=== PATIENT | male | born 1965 | race African-American/Black ===

== ENCOUNTER 2016-04-05 07:32 | Emergency (ER) | payer OTHER ==
[~2016-04-05] VITALS: Ht 182.9 cm; Wt 90.7 kg
[~2016-04-05 07:32] MED LIST: ACET325T9 PO; INSU100C4 SQ; INSU300I SQ; LINA290C PO; LISI-334 PO; MELO-150 PO; OMEP20CA9 PO; ONDA4TAB7 PO; OXYC-323 PO; PANT40TA3 PO; TADA5TAB PO
--- NOTE | 2016-04-05 07:56 | PHYS DOC ---
Past Medical History Past Medical History: Diabetes-Type I, High Cholesterol, Hypertension, Unknown , Other Additional Past Medical Histor: NEUROPATHY IN BILATERAL FEET,ERECTILE DYSFUNCTION Past Surgical History: Cholecystectomy Alcohol Use: None Drug Use: None Adult General Chief Complaint Chief Complaint: NAUSEA/VOMITING/DIARRHA HPI HPI Patient is a 50 year old male who presents with complaint of nausea, diarrhea, and abdominal pain. Patient states that his symptoms have been present for the past 5 days. On further questioning, patient states that he has had intermittent symptoms over the past 6 months. Patient denies any fevers, hematemesis, or bloody stools. The patient had his gallbladder removed several months ago with the hopes that this would help with his symptoms, however patient states that he has continued to have problems since having his gallbladder removed. Patient states that he was supposed to follow-up with Dr. Hutton one month ago but states that they did not make an appointment for him so he has not gone. Patient states that the pain is in the upper portion of his abdomen. Patient denies radiation of pain. Patient states that his symptoms get worse any time he tries to eat or drink anything. Review of Systems Review of Systems Constitutional: Denies fever or chills [] Eyes: Denies change in visual acuity, redness, or eye pain [] HENT: Denies nasal congestion or sore throat [] Respiratory: Denies cough or shortness of breath [] Cardiovascular: Denies chest pain or edema [] GI: Abdominal pain, nausea, vomiting, diarrhea [] : Denies dysuria or hematuria [] Musculoskeletal: Denies back pain or joint pain [] Integument: Denies rash or skin lesions [] Neurologic: Denies headache, focal weakness or sensory changes [] Endocrine: Denies polyuria or polydipsia [] Current Medications Current Medications Current Medications Medications (Trade) Dose Ordered Sig/Karli Start Time Stop Time Status Last Admin Dose Admin Sodium Chloride (Iv Sodium Chloride 0.9% 1000ml Bag) 1,000 ml @ 1,000 mls/hr Q1H 04/05/16 08:15 04/05/16 09:14 DC 04/05/16 08:33 1,000 MLS/HR Allergies Allergies Allergies Coded Allergies Type Severity Reaction Last Updated Verified No Known Drug Allergies 06/11/15 No Physical Exam Physical Exam Constitutional: Alert, afebrile, no acute distress. [] HENT: Normocephalic, atraumatic, bilateral external ears normal, oropharynx moist, no oral exudates, nose normal. [] Eyes: PERRLA, EOMI, conjunctiva normal, no discharge. [] Neck: Normal range of motion, no tenderness, supple, no stridor. [] Cardiovascular: Tachycardia, regular rhythm, no murmur [] Lungs & Thorax: Bilateral breath sounds clear to auscultation [] Abdomen: Bowel sounds normal, soft, minimal epigastric tenderness to palpation, no guarding or rebound tenderness, no masses, no pulsatile masses. [] Skin: Warm, dry, no erythema, no rash. [] Back: No tenderness, no CVA tenderness. [] Extremities: No tenderness, no cyanosis, no clubbing, ROM intact, no edema. [] Neurologic: Alert and oriented X 3, normal motor function, normal sensory function, no focal deficits noted. [] Current Patient Data Vital Signs Vital Signs Date Time Temp Pulse Resp B/P Pulse Ox O2 Delivery O2 Flow Rate FiO2 04/05/16 09:59 106 18 148/95 100 Room Air 04/05/16 07:36 98.4 98.4 Lab Values Laboratory Tests Test 04/05/16 07:50 04/05/16 09:52 White Blood Count 9.8x10^3/uL (4.0-11.0) Red Blood Count 4.87x10^6/uL (4.30-5.70) Hemoglobin 13.7g/dL (13.0-17.5) Hematocrit 41.5% (39.0-53.0) Mean Corpuscular Volume 85fL (79-100) Mean Corpuscular Hemoglobin 28pg (25-35) Mean Corpuscular Hemoglobin Concent 33g/dL (31-37) Red Cell Distribution Width 14.6% (11.5-14.5) H Platelet Count 282x10^3/uL (140-400) Neutrophils (%) (Auto) 63% (31-73) Lymphocytes (%) (Auto) 29% (24-48) Monocytes (%) (Auto) 7% (0-9) Eosinophils (%) (Auto) 1% (0-3) Basophils (%) (Auto) 1% (0-3) Neutrophils # (Auto) 6.1x10^3uL (1.8-7.7) Lymphocytes # (Auto) 2.9x10^3/uL (1.0-4.8) Monocytes # (Auto) 0.7x10^3/uL (0.0-1.1) Eosinophils # (Auto) 0.1x10^3/uL (0.0-0.7) Basophils # (Auto) 0.1x10^3/uL (0.0-0.2) Sodium Level 138mmol/L (136-145) Potassium Level 3.9mmol/L (3.5-5.1) Chloride Level 101mmol/L (98-107) Carbon Dioxide Level 27mmol/L (21-32) Anion Gap 10 (6-14) Blood Urea Nitrogen 16mg/dL (8-26) Creatinine 1.2mg/dL (0.7-1.3) Estimated GFR (Cockcroft-Gault) 76.9 BUN/Creatinine Ratio 13 (6-20) Glucose Level 258mg/dL (70-99) H Calcium Level 9.0mg/dL (8.5-10.1) Total Bilirubin 0.4mg/dL (0.2-1.0) Aspartate Amino Transferase (AST) 14U/L (15-37) L Alanine Aminotransferase (ALT) 17U/L (16-63) Alkaline Phosphatase 90U/L (46-116) Total Protein 7.6g/dL (6.4-8.2) Albumin 3.4g/dL (3.4-5.0) Albumin/Globulin Ratio 0.8 (1.0-1.7) L Lipase 84U/L (73-393) Urine Collection Type Void Urine Color Yellow Urine Clarity Clear Urine pH 5.5 Urine Specific [place] >=1.030 Urine Protein Negativemg/dL (NEG-TRACE) Urine Glucose (UA) >=1000mg/dL (NEG) Urine Ketones (Stick) Negativemg/dL (NEG) Urine Blood Negative (NEG) Urine Nitrite Negative (NEG) Urine Bilirubin Negative (NEG) Urine Urobilinogen Dipstick 0.2mg/dL (0.2 mg/dL) Urine Leukocyte Esterase Negative (NEG) Urine RBC 0/HPF (0-2) Urine WBC 1-4/HPF (0-4) Urine Squamous Epithelial Cells Occ/LPF Urine Bacteria 0/HPF (0-FEW) Urine Hyaline Casts Moderate/HPF Urine Mucus Slight/LPF Urine Opiates Screen Neg (NEG) Urine Methadone Screen Neg (NEG) Urine Barbiturates Neg (NEG) Urine Phencyclidine Screen Neg (NEG) Urine Amphetamine/Methamphetamine Neg (NEG) Urine Benzodiazepines Screen Neg (NEG) Urine Cocaine Screen Neg (NEG) Urine Cannabinoids Screen Neg (NEG) Urine Ethyl Alcohol Neg (NEG) Laboratory Tests 04/05/16 07:50 Laboratory Tests 04/05/16 07:50 EKG EKG Interpreted by me: Heart rate 108, sinus rhythm, normal intervals, normal axis, no acute ST/T-wave abnormalities present [] Radiology/Procedures Radiology/Procedures [facility] [address] [place] [address] IMAGING REPORT Signed PATIENT: AMPARO CALLOWAY ACCOUNT: [id number] : 1965 LOCATION: ER AGE: 50 SEX: M EXAM STATUS: REG ER ORD. PHYSICIAN: MAXINE WILSON MD REASON: abdominal pain, vomitting, X 1 WEEK, NO INJURY, NO SURGERY PROCEDURE: ACUTE ABDOMEN SERIES Acute abdomen series with chest, 3 views, 04/05/2016: History: Abdominal pain and vomiting The abdominal gas pattern is unremarkable without evidence of obstruction. No free air seen in the abdomen. There is no evidence of organomegaly. Surgical clips are present in the right upper quadrant. Tiny pelvic calcifications are probably phleboliths. The heart size is normal. The lungs are clear. There is no evidence of pleural fluid. IMPRESSION: No acute abdominal abnormality is detected. DICTATED and SIGNED BY: PREET PEREZ MD DATE: 04/05/16 0834 CC: MAXINE WILSON MD; DESIRAE ONOFRE PA-C ~ [] Course & Med Decision Making Course & Med Decision Making Pertinent Labs and Imaging studies reviewed. (See chart for details) The patient was given IV fluids. Patient was given a meal tray in the emergency department. Patient's lab work is unremarkable and x-rays do not show an acute process. The patient is recommended follow-up with his primary doctor and to follow-up with Dr. Hutton of gastroenterology as recommended a previous visit. Advised to call their office today to schedule an appointment in the next 1-2 weeks. Advised return emergency department for any worsening symptoms. Patient voiced understanding and in agreement with treatment plan. Dragon Disclaimer Dragon Disclaimer This electronic medical record was generated, in whole or in part, using a voice recognition dictation system. Departure Departure Impression: Primary Impression: Abdominal pain Additional Impressions: Nausea and vomiting Diarrhea Disposition: HOME, SELF-CARE Condition: IMPROVED Referrals: DESIRAE ONOFRE PA-C (PCP) ANIBAL HUTTON MD Patient Instructions: Abdominal Pain (Nonspecific), Diarrhea, Nausea and Vomiting Additional Instructions: Follow-up with Dr. Hutton in the next 1-2 weeks. Call his office today to schedule an appointment. Continue on Pepcid twice daily and use Zofran as needed for nausea. Return to the emergency department for any worsening symptoms. Scripts Famotidine (Pepcid)20 Mg [id number] Mg PO BID #30 TAB Prov:MAXINE WILSON MD 04/05/16 Metoclopramide Hcl (Reglan)10 Mg Tablet1 Tab PO TID PRN NAUSEA/VOMITING #30 TAB Prov:MAXINE WILSON MD 04/05/16 Problem Qualifiers Primary Impression: Abdominal pain Abdominal location: epigastric Qualified Code: R10.13 - Epigastric pain Additional Impressions: Nausea and vomiting Vomiting type: unspecified Vomiting Intractability: non-intractable Qualified Code: R11.2 - Nausea with vomiting, unspecified Diarrhea Diarrhea type: unspecified type Qualified Code: R19.7 - Diarrhea, unspecified MAXINE WILSON MD Apr 05, 2016 07:56
[2016-04-05] MEDS ORDERED: IV NORMAL SALINE 1000ML BAG 1,000 ML IV SCH (08:15)
[2016-04-05 08:16] LABS: BASO # 0.1 x10^3/uL (0.0-0.2); BASO % 1 % (0-3); EOS % 1 % (0-3); HEMATOCRIT 41.5 % (39.0-53.0); HEMOGLOBIN 13.7 g/dL (13.0-17.5); LYMPH # 2.9 x10^3/uL (1.0-4.8); LYMPH % 29 % (24-48); MEAN CORPUSCULAR HEMOGLOBIN 28 pg (25-35); MEAN CORPUSCULAR HGB CONC 33 g/dL (31-37); MEAN CORPUSCULAR VOLUME 85 fL (79-100); MONO % 7 % (0-9); NEUT % 63 % (31-73); PLATELET COUNT 282 x10^3/uL (140-400); RED BLOOD COUNT 4.87 x10^6/uL (4.30-5.70); RED CELL DISTRIBUTION WIDTH 14.6 % (11.5-14.5); WHITE BLOOD COUNT 9.8 x10^3/uL (4.0-11.0)
[2016-04-05 08:21] LABS: CREATININE 1.2 mg/dL (0.7-1.3); GFR 76.9; POTASSIUM 3.9 mmol/L (3.5-5.1)
[2016-04-05 08:27] LABS: ALBUMIN 3.4 g/dL (3.4-5.0); ALBUMIN/GLOBULIN RATIO 0.8 (1.0-1.7); TOTAL BILIRUBIN 0.4 mg/dL (0.2-1.0); TOTAL PROTEIN 7.6 g/dL (6.4-8.2)
--- NOTE | 2016-04-05 08:38 | RAD ---
Acute abdomen series with chest, 3 views, 04/05/2016: History: Abdominal pain and vomiting The abdominal gas pattern is unremarkable without evidence of obstruction. No free air seen in the abdomen. There is no evidence of organomegaly. Surgical clips are present in the right upper quadrant. Tiny pelvic calcifications are probably phleboliths. The heart size is normal. The lungs are clear. There is no evidence of pleural fluid. IMPRESSION: No acute abdominal abnormality is detected.
[2016-04-05 10:07] LABS: BARBITURATES NEG (NEG); BENZODIAZEPINES NEG (NEG); CANNABINOIDS NEG (NEG); COCAINE NEG (NEG); METHADONE NEG (NEG); OPIATES NEG (NEG); PHENCYCLIDINE NEG (NEG)
[2016-04-05 10:10] LABS: BILIRUBIN,URINE NEGATIVE (NEG); ETHANOL, URINE NEG (NEG); GLUCOSE,URINE >=1000 mg/dL (NEG); NITRITE,URINE NEGATIVE (NEG); PH,URINE 5.5; PROTEIN,URINE NEGATIVE (NEG-TRACE); UROBILINOGEN,URINE 0.2 mg/dL (0.2 mg/dL)
--- NOTE | 2016-04-05 10:10 | EKG ---
[facility] [address] [place] [address] Test Date: 2016-04-05 Test Time: 08:20:43 Pat Name: AMPARO CALLOWAY Department: Room: Gender: M [employer]: : 1965 Requested By: MAXINE WILSON Order Number: [id number] Reading MD: Measurements Intervals [place] Rate: 108 P: 43 HI: 156 QRS: -12 QRSD: 84 T: 26 QT: 338 QTc: 457 Interpretive Statements SINUS TACHYCARDIA LEFTWARD AXIS QRS(T) CONTOUR ABNORMALITY CONSIDER ANTEROLATERAL MYOCARDIAL DAMAGE CONSIDER INFERIOR INFARCT POSSIBLY ABNORMAL ECG RI6.01 Compared to ECG 01/25/2016 06:45:15 Left-axis deviation now present Myocardial infarct finding now present
[2016-04-05 10:55] LABS: BACTERIA,URINE 0 /HPF (0-FEW); RBC,URINE 0 /HPF (0-2); SQUAMOUS EPITHELIAL CELL,UR OCC /LPF
[2016-04-05] MEDS ORDERED: METO10TA81 PO (11:50)
[2016-04-05] MEDS ORDERED: FAMO-63 PO (11:50)
[2016-04-05 11:51] VITALS: BP 144/73
== END 2016-04-05 12:36 | disposition home or self-care (01) ==
LOC: ER 07:32
DX: R10.13 Epigastric pain (principal); R11.2 Nausea with vomiting, unspecified; R19.7 Diarrhea, unspecified; E10.40 Type 1 diabetes mellitus with diabetic neuropathy, unspecified; I10 Essential (primary) hypertension; E78.00 Pure hypercholesterolemia, unspecified; Z90.49 Acquired absence of other specified parts of digestive tract
CPT/HCPCS: 36415; 74022; 80053; 81001; 83690; 85027; 93005; 96360; 96361; 99285; G0481; J7030

== ENCOUNTER 2016-04-08 17:14 | Emergency (ER) | payer OTHER ==
[~2016-04-08] VITALS: Ht 182.9 cm; Wt 87.1 kg
[~2016-04-08 17:14] MED LIST changes: +FAMO-63 PO; +METO10TA81 PO
[2016-04-08 18:26] VITALS: BP 147/105
--- NOTE | 2016-04-08 18:57 | PHYS DOC ---
Past Medical History Past Medical History: Diabetes-Type I, High Cholesterol, Hypertension, Unknown , Other Additional Past Medical Histor: NEUROPATHY IN BILATERAL FEET,ERECTILE DYSFUNCTION Past Surgical History: Cholecystectomy Alcohol Use: None Drug Use: None Adult General Chief Complaint Chief Complaint: FOOT INJURY PAIN [facility] HPI Patient is a 50 year old male presents emergency Department stating he's had 2- 3 month history of pain and swelling to his left knee and lower leg. He states that he has had swelling in the foot area for the last 2 months. Also has had back pain for the last 2-3 months. Patient states that he was seen by his primary care physician and was told that this is related to the way he is walking. Patient states that he has been having injections in his knee. Patient states that he has been having sharp pains in his ankle area and in the foot. He denies any numbness or tingling in his left side although he does have neuropathy in his right foot. Patient states he has increased pain with ambulation. Patient denies any falls traumas in her any injuries. Patient had been taking tramadol although patient states that this has really not been helping with much of the pain and discomfort. She'll states she's been taken Aleve for his back pain which has actually caused increased pain and discomfort in his lower back area. Review of Systems Review of Systems Constitutional: Denies fever or chills [] Eyes: Denies change in visual acuity, redness, or eye pain [] HENT: Denies nasal congestion or sore throat [] Respiratory: Denies cough or shortness of breath [] Cardiovascular: No additional information not addressed in HPI [] GI: Denies abdominal pain, nausea, vomiting, bloody stools or diarrhea [] : Denies dysuria or hematuria [] Musculoskeletal: C/o back pain and left lower leg pain Integument: Denies rash or skin lesions [] Neurologic: Denies headache, focal weakness or sensory changes [] Current Medications Current Medications Current Medications Medications (Trade) Dose Ordered Sig/Karli Start Time Stop Time Status Last Admin Dose Admin Tramadol HCl (Ultram) 50 mg 1X ONCE 04/08/16 19:00 04/08/16 19:01 DC 04/08/16 19:00 50 MG Allergies Allergies Allergies Coded Allergies Type Severity Reaction Last Updated Verified No Known Drug Allergies 06/11/15 No Physical Exam Physical Exam Constitutional: Well developed, well nourished, no acute distress, non-toxic appearance. [] HENT: Normocephalic, atraumatic, bilateral external ears normal, oropharynx moist, no oral exudates, nose normal. [] Eyes: PERRLA, EOMI, conjunctiva normal, no discharge. [] Neck: Normal range of motion, no tenderness, supple, no stridor. [] Cardiovascular:Heart rate regular rhythm, no murmur [] Lungs & Thorax: Bilateral breath sounds clear to auscultation [] Skin: Warm, dry, no erythema, no rash. [] Back: No tenderness noted in the lower back, no lumbar spine tenderness, no step -offs, deformities, or crepitus. Extremities: Left knee and foot with no tenderness, no cyanosis, no clubbing, ROM intact, no edema. Peripheral pulses 2+ cap refill brisk less than 2 seconds good sensation noted. Negative Homans sign negative valgus, negative [place]. Negative Eloise's. Neurologic: Alert and oriented X 3, normal motor function, normal sensory function, no focal deficits noted. [] Psychologic: Affect normal, judgement normal, mood normal. [] Current Patient Data Vital Signs Vital Signs Date Time Temp Pulse Resp B/P Pulse Ox O2 Delivery O2 Flow Rate FiO2 04/08/16 18:26 98.2 113 18 99 Room Air 98.2 EKG EKG [] Radiology/Procedures Radiology/Procedures [] Course & Med Decision Making Course & Med Decision Making Pertinent Labs and Imaging studies reviewed. (See chart for details) Spoke with patient and family regards to this going on for the last 2-3 months. Asked with her primary care physician had instructed them. They state that it has to do with the way he is walking. Explained to patient that from the emergency department standpoint we may not find anything further home with the leg as he has had no trauma or injury to require x-rays. Family member at bedside states that concerned with the swelling although swelling is been going on for the last 2-3 months. Family member states that they have been elevating it at night in the swelling has not continued to go down. Patient does have an elevation of his blood pressure here in the emergency department denies any headaches chest pain or shortness of air. 1908 patient has chosen not to have the ultrasound completed on his left lower leg. Patient will be discharged home with recommendations to follow-up with his primary care physician within the next 3-5 days. Signs and symptoms to return back to emergency department been provided. Patient agrees with discharge instructions treatment regimens and follow-up recommendations. [] Dragon Disclaimer Dragon Disclaimer This electronic medical record was generated, in whole or in part, using a voice recognition dictation system. Departure Departure Impression: Primary Impression: Left leg pain Additional Impression: Left leg swelling Disposition: HOME, SELF-CARE Condition: STABLE Referrals: DESIRAE ONOFRE PA-C (PCP) Patient Instructions: Musculoskeletal Pain Additional Instructions: You have been offered an ultrasound for your left lower leg in which you have refused. Activity as tolerated. Medication as prescribed. Tramadol will cause drowsiness do not take any be alert and oriented. Flexeril is a muscle relaxer this medication will also cause drowsiness do not take any be alert and oriented. Continue with Aleve or ibuprofen for pain and discomfort as well. Elevation as much as possible. Follow-up to primary care physician next 3-5 days. Return back to emergency department sign symptoms of become worse. Scripts Cyclobenzaprine Hcl 10 Mg [id number] Mg PO TID #20 TAB Prov:CONNIE NAIDU NP 04/08/16 Tramadol Hcl (Ultram)50 Mg Tablet1 Tab PO Q6HRS #10 TAB Prov:CONNIE NAIDU [employer] 04/08/16 Problem Qualifiers CONNIE NAIDU NP Apr 08, 2016 18:57
[2016-04-08] MEDS ORDERED: TRAMADOL 50 MG TABLET. PO ONE (19:00)
[2016-04-08] MEDS ORDERED: TRAM-29 PO (19:10)
[2016-04-08] MEDS ORDERED: CYCL10TA2 PO (19:11)
== END 2016-04-08 19:15 | disposition home or self-care (01) ==
LOC: ER 17:14
DX: M79.605 Pain in left leg (principal); M79.89 Other specified soft tissue disorders; E78.00 Pure hypercholesterolemia, unspecified; I10 Essential (primary) hypertension; E11.40 Type 2 diabetes mellitus with diabetic neuropathy, unspecified
CPT/HCPCS: 99283

== ENCOUNTER 2016-05-30 13:31 | Emergency (ER) | payer OTHER ==
[~2016-05-30] VITALS: Ht 180.3 cm; Wt 88.5 kg
[~2016-05-30 13:31] MED LIST changes: +CYCL10TA2 PO; +TRAM-29 PO
[2016-05-30 13:34] VITALS: BP 156/106
[2016-05-30 14:34] LABS: BILIRUBIN,URINE NEGATIVE (NEG); GLUCOSE,URINE >=1000 mg/dL (NEG); NITRITE,URINE NEGATIVE (NEG); PROTEIN,URINE NEGATIVE (NEG-TRACE); UROBILINOGEN,URINE 0.2 mg/dL (0.2 mg/dL)
[2016-05-30 14:41] LABS: BACTERIA,URINE 0 /HPF (0-FEW); RBC,URINE 0 /HPF (0-2); SQUAMOUS EPITHELIAL CELL,UR FEW /LPF; WBC,URINE OCC /HPF (0-4)
[2016-05-30] MEDS ORDERED: HYDR-971 PO (14:52)
[2016-05-30] MEDS ORDERED: METH-37 PO (14:52)
--- NOTE | 2016-05-30 14:52 | PHYS DOC ---
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 He denies any injury to his back. He has not been doing any bending or lifting activities.He denies any incontinence or saddle anesthesia. He does not have any weakness, numbness, abdominal pain, nausea, vomiting, or urinary symptoms. He is tried applying heat and ice and taking ibuprofen at home without pain relief. He denies any history of chronic back problems. His PCP is Dr. Worthington. Review of Systems Review of Systems Constitutional: Denies fever or chills. [] Eyes: Denies change in visual acuity, redness, or eye pain. [] HENT: Denies ear pain, nasal congestion or sore throat. [] Respiratory: Denies cough or shortness of breath. [] Cardiovascular: Denies chest pain, palpitations or edema. [] GI: Denies abdominal pain, nausea, vomiting, bloody stools or diarrhea. [] : Denies dysuria, hematuria or urinary frequency. [] Musculoskeletal: Denies joint pain. Reports low-back pain with radiation down the right leg. Integument: Denies rash or skin lesions. [] Neurologic: Denies headache, focal weakness or sensory changes. Denies incontinence or saddle anesthesia. Endocrine: Denies polyuria or polydipsia. [] Psych: Denies anxiety or depression. [] All systems reviewed and negative unless otherwise stated in the HPI. Allergies Allergies Allergies Coded Allergies Type Severity Reaction Last Updated Verified No Known Drug Allergies 06/11/15 No Physical Exam Physical Exam Constitutional: Well developed, well nourished, no acute distress, non-toxic appearance. [] HENT: Normocephalic, atraumatic, oropharynx moist. [] Eyes: PERRLA, EOMI, conjunctiva normal, no discharge. [] Neck: Normal range of motion, no tenderness, supple, no stridor. [] Cardiovascular: Heart rate regular rhythm, no murmur. [] Lungs & Thorax: Bilateral breath sounds clear to auscultation without wheezes, rales, or rhonchi. [] Abdomen: Bowel sounds normal, soft, no tenderness, no masses, no pulsatile masses. [] Skin: Warm, dry, no erythema, no rash. [] Back: No midline tenderness, no CVA tenderness. There is right lumbar paraspinal muscle tenderness with spasm. Extremities: No tenderness, ROM intact, no edema. Distal pulses equal bilaterally. Light touch sensation intact and equal bilaterally proximally and distally in the lower extremities. Neurologic: Alert and oriented X 3, normal motor function, normal sensory function, no focal deficits noted. Patient walks with normal steady gait without assistance. Psychologic: Affect normal, judgement normal, mood normal. [] Current Patient Data Vital Signs Vital Signs Date Time Temp Pulse Resp B/P Pulse Ox O2 Delivery O2 Flow Rate FiO2 05/30/16 13:34 98.0 123 20 99 Room Air 98.0 Lab Values Laboratory Tests Test 05/30/16 14:10 Urine Collection Type Unknown Urine Color Yellow Urine Clarity Clear Urine pH 6.0 Urine Specific [place] >=1.030 Urine Protein Negativemg/dL (NEG-TRACE) Urine Glucose (UA) >=1000mg/dL (NEG) Urine Ketones (Stick) Negativemg/dL (NEG) Urine Blood Negative (NEG) Urine Nitrite Negative (NEG) Urine Bilirubin Negative (NEG) Urine Urobilinogen Dipstick 0.2mg/dL (0.2 mg/dL) Urine Leukocyte Esterase Negative (NEG) Urine RBC 0/HPF (0-2) Urine WBC Occ/HPF (0-4) Urine Squamous Epithelial Cells Few/LPF Urine Bacteria 0/HPF (0-FEW) Urine Mucus Mod/LPF EKG EKG [] Radiology/Procedures Radiology/Procedures [] Course & Med Decision Making Course & Med Decision Making Pertinent Labs and Imaging studies reviewed. (See chart for details) [] Dragon Disclaimer Dragon Disclaimer This electronic medical record was generated, in whole or in part, using a voice recognition dictation system. Departure Departure Impression: Primary Impression: Low back pain Disposition: 01 HOME, SELF-CARE Condition: STABLE Referrals: MESHA WORTHINGTON MD (PCP) Patient Instructions: Back Pain, Adult, [id number] Additional Instructions: Your urine does not show any sign of infection or blood. Please take the prescribed medications as directed. Do not drive or operate heavy machinery while taking these medications. In order to help your back pain, apply heat, practice gentle stretching and light massage, and avoid bending or lifting activities that will further strain your back. Please follow-up with your primary care doctor if your pain continues. Return to the emergency department if you have any new or concerning symptoms. Scripts Hydrocodone/Apap 5-325 ([place] 5-325 Tablet)1 Each Tablet1 Tab PO PRN Q6HRS PRN PAIN #20 TAB Prov:LINDA TSE 05/30/16 Methocarbamol (Robaxin)500 Mg [id number] Mg PO QID #20 TAB Prov:LINDA TSE 05/30/16 Problem Qualifiers Primary Impression: Low back pain Chronicity: acute Back pain laterality: right Sciatica presence: with sciatica Sciatica laterality: sciatica of right side Qualified Code: M54.41 - Lumbago with sciatica, right side LINDA TSE May 30, 2016 14:52
== END 2016-05-30 14:59 | disposition home or self-care (01) ==
LOC: ER 13:31
DX: M54.41 Lumbago with sciatica, right side (principal); E78.00 Pure hypercholesterolemia, unspecified; I10 Essential (primary) hypertension; E11.40 Type 2 diabetes mellitus with diabetic neuropathy, unspecified; Z90.49 Acquired absence of other specified parts of digestive tract
CPT/HCPCS: 81001; 99283

== ENCOUNTER 2016-07-01 08:09 | Emergency (ER) | payer OTHER ==
[~2016-07-01] VITALS: Ht 180.3 cm; Wt 90.7 kg
[~2016-07-01 08:09] MED LIST changes: +HYDR-971 PO; +METH-37 PO
[2016-07-01 08:15] VITALS: BP 188/111
[2016-07-01] MEDS ORDERED: METH-37 PO (08:35)
[2016-07-01] MEDS ORDERED: HYDR-971 PO (08:35)
--- NOTE | 2016-07-01 08:35 | PHYS DOC ---
Past Medical History Past Medical History: Diabetes-Type I, Diabetes-Type II, High Cholesterol, Hypertension, Unknown, Other Additional Past Medical Histor: NEUROPATHY IN BILATERAL FEET,ERECTILE DYSFUNCTION Past Surgical History: Cholecystectomy Alcohol Use: None Drug Use: None Adult General Chief Complaint Chief Complaint: BACK PAIN - NO INJURY HPI HPI Patient is a 51 year old male with history of diabetes type 2, hypertension, high cholesterol, who presents today with mild bilateral low back pain radiating to bilateral lower extremities. Patient states this pain is chronic in nature but has gotten worse in the last couple days due to heavy lifting at work. He states he follows up with Dr. Worthington and has an appointment on July 07, 2016. He states he has tried eivj-tvc-kanjxoe Aleve, warm packs, with no relief. Patient denies any trauma. Denies any loss of bowel bladder function. Denies any numbness or tingling to bilateral lower extremities. Review of Systems Review of Systems Constitutional: Denies fever or chills [] GI: Denies abdominal pain, nausea, vomiting, bloody stools or diarrhea [] : Denies dysuria or hematuria [] Musculoskeletal: back pain Integument: Denies rash or skin lesions [] Neurologic: Denies headache, focal weakness or sensory changes [] Endocrine: Denies polyuria or polydipsia [] Allergies Allergies Allergies Coded Allergies Type Severity Reaction Last Updated Verified No Known Drug Allergies 06/11/15 No Physical Exam Physical Exam Constitutional: Well developed, well nourished, no acute distress, non-toxic appearance. [] Neck: Normal range of motion, no tenderness, supple, no stridor. [] Abdomen: Bowel sounds normal, soft, no tenderness, no masses, no pulsatile masses. [] Skin: Warm, dry, no erythema, no rash. [] Back: Diffuse paraspinal muscle tenderness to bilateral lower lumbar region, no midline lumbar tenderness, no CVA tenderness. [] Extremities: No tenderness, no cyanosis, no clubbing, ROM intact, no edema. [] Neurologic: Alert and oriented X 3, normal motor function, normal sensory function, no focal deficits noted. [] Psychologic: Affect normal, judgement normal, mood normal. [] Current Patient Data Vital Signs Vital Signs Date Time Temp Pulse Resp B/P (MAP) Pulse Ox O2 Delivery O2 Flow Rate FiO2 07/01/16 08:15 98.1 84 18 98 Room Air 98.1 EKG EKG [] Radiology/Procedures Radiology/Procedures [] Course & Med Decision Making Course & Med Decision Making Pertinent Labs and Imaging studies reviewed. (See chart for details) Patient is in the ED with exacerbation of chronic low back pain. No injury. He follows up with Dr. Worthington and has an appointment on July 07, 2016. He has tried oegm-vtw-ywsbwlv Aleve and warm packs with no relief. D/C with [place], Robaxin which he states he got last time and it helped and he will continue with Aleve as needed. Dragon Disclaimer Dragon Disclaimer This electronic medical record was generated, in whole or in part, using a voice recognition dictation system. Departure Departure Impression: Primary Impression: Back pain Disposition: HOME, SELF-CARE Condition: STABLE Referrals: MESHA WORTHINGTON MD (PCP) Patient Instructions: Back Pain, Adult Additional Instructions: You were seen for exacerbation of chronic back pain. We highly recommend you follow-up with Dr. Worthington as scheduled on Jul 07 2016. We sent you home with medicines to help with the pain. Take as prescribed. please come back to the emergency room if symptoms worsen especially if you develop any loss of bowel/ bladder function. Scripts Hydrocodone/Apap 5-325 (NORCO 5-325 TABLET) 1 Each Tablet 1 TAB PO Q6-8HRS Y for PAIN, #12 TAB Prov: ELAINE CLEMENTS APRN 07/01/16 Methocarbamol (ROBAXIN) 500 Mg Tablet 1 TAB PO TID, #30 TAB Prov: ELAINE CLEMENTS APRN 07/01/16 Problem Qualifiers Primary Impression: Back pain Back pain location: low back pain Chronicity: chronic Back pain laterality : bilateral Sciatica presence: with sciatica Sciatica laterality: bilateral sciatica Qualified Codes: M54.42 - Lumbago with sciatica, left side ; M54.41 - Lumbago with sciatica, right side; G89.29 - Other chronic pain ELAINE CLEMENTS APRN July 01, 2016 08:35
== END 2016-07-01 08:43 | disposition home or self-care (01) ==
LOC: ER 08:09
DX: G89.29 Other chronic pain (principal); M54.41 Lumbago with sciatica, right side; M54.42 Lumbago with sciatica, left side; I10 Essential (primary) hypertension; E78.00 Pure hypercholesterolemia, unspecified; E11.40 Type 2 diabetes mellitus with diabetic neuropathy, unspecified
CPT/HCPCS: 99283

== ENCOUNTER 2016-10-23 10:40 | Emergency (ER) | payer OTHER ==
[~2016-10-23] VITALS: Ht 180.3 cm; Wt 96.2 kg
[~2016-10-23 10:40] MED LIST changes: -MELO-150 PO; +MELO15TA23 PO; -TRAM-29 PO; +TRAM-48 PO
[2016-10-23 11:32] VITALS: BP 150/85
[2016-10-23 11:46] LABS: BILIRUBIN,URINE NEGATIVE (NEG); GLUCOSE,URINE NEGATIVE (NEG); NITRITE,URINE NEGATIVE (NEG); PROTEIN,URINE NEGATIVE (NEG-TRACE); UROBILINOGEN,URINE 0.2 mg/dL (0.2 mg/dL)
[2016-10-23 12:11] LABS: BACTERIA,URINE FEW /HPF (0-FEW); RBC,URINE 0 /HPF (0-2); SQUAMOUS EPITHELIAL CELL,UR FEW /LPF
[2016-10-23] MEDS ORDERED: HYDR-971 PO (12:48)
[2016-10-23] MEDS ORDERED: CYCL10TA2 PO (12:48)
[2016-10-23] MEDS ORDERED: NAPR500T3 PO (12:48)
--- NOTE | 2016-10-23 12:49 | PHYS DOC ---
Past Medical History Past Medical History: Diabetes-Type II, High Cholesterol, Hypertension, Unknown , Other Additional Past Medical Histor: NEUROPATHY IN BILATERAL FEET,ERECTILE DYSFUNCTION Past Surgical History: Cholecystectomy Alcohol Use: None Drug Use: None Adult General Chief Complaint Chief Complaint: LOWER BACK PAIN OR INJURY HPI HPI Patient is a 51 year old male with history of hypertension, diabetes type 2, high cholesterol, who presents with moderate left low back pain that has been going on for 10 days. Patient denies any trauma. Denies any personal family history of kidney stones. Denies any concerns for STDs. Patient states the pain is worse on movement, describes the pain as throbbing and sometimes sharp. Patient denies pain radiating to bilateral lower extremities, denies any loss of bowel bladder function. Review of Systems Review of Systems Constitutional: Denies fever or chills [] GI: Denies abdominal pain, nausea, vomiting, bloody stools or diarrhea [] : Denies dysuria or hematuria [] Musculoskeletal: moderate left low back pain Integument: Denies rash or skin lesions [] Neurologic: Denies headache, focal weakness or sensory changes [] Allergies Allergies Allergies Coded Allergies Type Severity Reaction Last Updated Verified No Known Drug Allergies 06/11/15 No Physical Exam Physical Exam Constitutional: Well developed, well nourished, no acute distress, non-toxic appearance. [] Abdomen: Bowel sounds normal, soft, no tenderness, no masses, no pulsatile masses. [] Skin: Warm, dry, no erythema, no rash. [] Back: Diffuse paraspinal muscle tenderness to the left lumbar spine, no midline lumbar spine tenderness, no CVA tenderness. [] Extremities: No tenderness, no cyanosis, no clubbing, ROM intact, no edema. [] Neurologic: Alert and oriented X 3, normal motor function, normal sensory function, no focal deficits noted. [] Psychologic: Affect normal, judgement normal, mood normal. [] Current Patient Data Vital Signs Vital Signs Date Time Temp Pulse Resp B/P (MAP) Pulse Ox O2 Delivery O2 Flow Rate FiO2 10/23/16 11:32 98.1 99 18 150/85 (106) 100 Room Air 98.1 Lab Values Laboratory Tests Test 10/23/16 11:25 Urine Collection Type Void Urine Color Yellow Urine Clarity Clear Urine pH 7.0 Urine Specific [place] 1.020 Urine Protein Negative mg/dL (NEG-TRACE) Urine Glucose (UA) Negative mg/dL (NEG) Urine Ketones (Stick) Negative mg/dL (NEG) Urine Blood Negative (NEG) Urine Nitrite Negative (NEG) Urine Bilirubin Negative (NEG) Urine Urobilinogen Dipstick 0.2 mg/dL (0.2 mg/dL) Urine Leukocyte Esterase Negative (NEG) Urine RBC 0 /HPF (0-2) Urine WBC 1-4 /HPF (0-4) Urine Squamous Epithelial Cells Few /LPF Urine Bacteria Few /HPF (0-FEW) Urine Mucus Mod /LPF EKG EKG [] Radiology/Procedures Radiology/Procedures [] Course & Med Decision Making Course & Med Decision Making Pertinent Labs and Imaging studies reviewed. (See chart for details) Patient is in the ED with complaints of low back pain with no known injury. Urine analysis is negative for any infection. No signs of kidney stones. Patient be discharged with naproxen, cyclobenzaprine, and 12 tablets of [place]. Encouraged patient to exercise. Encouraged him to follow-up with his own doctor in the course of next week. Provided him return precautions and discharged in stable condition. Dragon Disclaimer Dragon Disclaimer This electronic medical record was generated, in whole or in part, using a voice recognition dictation system. Departure Departure Impression: Primary Impression: Low back pain Disposition: 01 HOME, SELF-CARE (anxious,) Condition: STABLE Referrals: MESHA WORTHINGTON MD (PCP) follow up with your doctor in one week Patient Instructions: Back Pain, Adult, [id number] Additional Instructions: You were seen for low back pain most of it appears to be musculoskeletal. We gave you recommended exercises, try and do them as tolerated. Apply heat to your low back. Follow-up with your doctor next week. Come back to the ED if symptoms worsen. Scripts Naproxen (NAPROXEN) 500 Mg Tablet 1 TAB PO BID, #60 TAB Prov: ELAINE CLEMENTS [employer] ESTATE SALESPERSON 10/23/16 Cyclobenzaprine Hcl (CYCLOBENZAPRINE HCL) 10 Mg Tablet 1 TAB PO TID, #30 TAB Prov: MUTUNGAELAINE [employer] SALESPERSON 10/23/16 Hydrocodone/Apap 5-325 (NORCO 5-325 TABLET) 1 Each Tablet 1-2 TAB PO Q4-6HRS, #20 TAB Prov: ELAINE CLEMENTS [employer] SAL[employer]ERSON 10/23/16 Problem Qualifiers Primary Impression: Low back pain Chronicity: acute Back pain laterality: left Sciatica presence: without sciatica Qualified Codes: M54.5 - Low back pain ELAINE CLEMENTS APRN Oct 23, 2016 12:49
== END 2016-10-23 12:54 | disposition home or self-care (01) ==
LOC: ER 10:40
DX: M54.5 Low back pain (principal); E11.40 Type 2 diabetes mellitus with diabetic neuropathy, unspecified; E78.00 Pure hypercholesterolemia, unspecified; I10 Essential (primary) hypertension; Z90.49 Acquired absence of other specified parts of digestive tract
CPT/HCPCS: 81001; 99283

== ENCOUNTER 2017-02-22 11:45 | Inpatient (IN) | payer OTHER ==
[2017-02-22 12:08] LABS: ADD MAN DIFF? NO; BILIRUBIN,URINE NEGATIVE (NEG); CLARITY,URINE CLEAR; COLOR,URINE YELLOW; GLUCOSE,URINE >=1000 mg/dL (NEG); NITRITE,URINE NEGATIVE (NEG); PROTEIN,URINE NEGATIVE (NEG-TRACE); UROBILINOGEN,URINE 0.2 mg/dL (0.2 mg/dL)
[2017-02-22 12:12] LABS: BASO # 0.1 x10^3/uL (0.0-0.2); BASO % 1 % (0-3); EOS # 0.1 x10^3/uL (0.0-0.7); EOS % 1 % (0-3); HEMATOCRIT 48.1 % (39.0-53.0); HEMOGLOBIN 15.9 g/dL (13.0-17.5); LYMPH % 25 % (24-48); MEAN CORPUSCULAR HEMOGLOBIN 28 pg (25-35); MEAN CORPUSCULAR HGB CONC 33 g/dL (31-37); MEAN CORPUSCULAR VOLUME 85 fL (79-100); MONO # 0.4 x10^3/uL (0.0-1.1); MONO % 5 % (0-9); NEUT # 5.4 x10^3uL (1.8-7.7); NEUT % 68 % (31-73); PLATELET COUNT 255 x10^3/uL (140-400); RED BLOOD COUNT 5.67 x10^6/uL (4.30-5.70); RED CELL DISTRIBUTION WIDTH 14.4 % (11.5-14.5); WHITE BLOOD COUNT 7.9 x10^3/uL (4.0-11.0)
[2017-02-22 12:21] LABS: BACTERIA,URINE 0 /HPF (0-FEW); RBC,URINE OCC /HPF (0-2); SQUAMOUS EPITHELIAL CELL,UR FEW /LPF
[2017-02-22 12:25] LABS: D-DIMER 0.77 ug/mlFEU (0.00-0.50)
[2017-02-22 12:35] LABS: ANION GAP 10 (6-14); BLOOD UREA NITROGEN 17 mg/dL (8-26); BUN/CREATININE RATIO 13 (6-20); CALCIUM 8.7 mg/dL (8.5-10.1); CARBON DIOXIDE 27 mmol/L (21-32); CHLORIDE 99 mmol/L (98-107); CREATININE 1.3 mg/dL (0.7-1.3); GFR 69.9; GLUCOSE 354 mg/dL (70-99); POTASSIUM 4.3 mmol/L (3.5-5.1); SODIUM 136 mmol/L (136-145)
[2017-02-22] MEDS: ASPIRIN CHEWABLE 81 MG TABLET. PO (12:35)
[2017-02-22 12:43] LABS: TROPONINI < 0.017 ng/mL (0.000-0.055)
[2017-02-22 12:43] LABS: ALBUMIN 3.6 g/dL (3.4-5.0); ALBUMIN/GLOBULIN RATIO 0.8 (1.0-1.7); ALK PHOS 102 U/L (46-116); ALT (SGPT) 53 U/L (16-63); AST (SGOT) 22 U/L (15-37); CREATINE KINASE 138 U/L (39-308); LIPASE 74 U/L (73-393); TOTAL BILIRUBIN 0.5 mg/dL (0.2-1.0); TOTAL PROTEIN 8.1 g/dL (6.4-8.2)
[2017-02-22 12:49] LABS: CKMB MASS 1.4 ng/mL (0.0-3.6); CREATINE KINASE 140 U/L (39-308)
[2017-02-22 12:49] LABS: NT-PRO BNP 23 pg/mL (0-124)
[2017-02-22] MEDS: MORPHINE SULFATE 4 MG/ML DISP.SYRIN. IV ×2 (13:07→16:15)
[2017-02-22] MEDS: IOHEXOL 300 MG/ML 100ML VIAL. IV (13:21)
[2017-02-22] MEDS: amLODIPine BESYLATE 10 MG TABLET PO (13:32)
[2017-02-22] MEDS: LOSARTAN POTASSIUM 50 MG TABLET. PO (13:33)
[2017-02-22] MEDS: IV NORMAL SALINE 1000ML BAG 1,000 ML IV (13:51)
[2017-02-22] MEDS ORDERED: ONDANSETRON PF 4 MG/2 ML VIAL. IV (14:15)
[2017-02-22] MEDS ORDERED: ACETAMINOPHEN 325 MG TABLET. PO (14:15)
[2017-02-22 16:34] LABS: POC GLUCOSE 250 mg/dL (70-99)
[2017-02-22 20:41] LABS: TROPONINI < 0.017 ng/mL (0.000-0.055)
[2017-02-22 20:49] LABS: POC GLUCOSE 362 mg/dL (70-99)
[2017-02-22] MEDS: IPRATRPIUM/ALBUTEROL 0.5/2.5MG 3 ML NEBU. NEB (20:54)
[2017-02-22] MEDS: ATORVASTATIN CALCIUM 40 MG TABLET. PO (21:17)
[2017-02-22] MEDS: FAMOTIDINE 20 MG TABLET. PO (21:18)
[2017-02-22] MEDS: GABAPENTIN 300 MG CAPSULE. PO (21:18)
[2017-02-22] MEDS: HYDROcodone/APAP 5/325MG 1 TAB TABLET PO (21:20)
[2017-02-22] MEDS: INSULIN DETEMIR 300 UNITS/3 ML INSULN.PEN. SQ (21:24)
[2017-02-23 02:01] LABS: ADD MAN DIFF? NO
[2017-02-23 02:08] LABS: BASO # 0.1 x10^3/uL (0.0-0.2); BASO % 1 % (0-3); EOS # 0.1 x10^3/uL (0.0-0.7); EOS % 2 % (0-3); HEMATOCRIT 44.5 % (39.0-53.0); HEMOGLOBIN 14.5 g/dL (13.0-17.5); LYMPH # 2.7 x10^3/uL (1.0-4.8); LYMPH % 34 % (24-48); MEAN CORPUSCULAR HEMOGLOBIN 28 pg (25-35); MEAN CORPUSCULAR HGB CONC 33 g/dL (31-37); MEAN CORPUSCULAR VOLUME 85 fL (79-100); MONO # 0.4 x10^3/uL (0.0-1.1); MONO % 6 % (0-9); NEUT # 4.5 x10^3uL (1.8-7.7); NEUT % 57 % (31-73); PLATELET COUNT 236 x10^3/uL (140-400); RED BLOOD COUNT 5.22 x10^6/uL (4.30-5.70); RED CELL DISTRIBUTION WIDTH 14.4 % (11.5-14.5); WHITE BLOOD COUNT 7.9 x10^3/uL (4.0-11.0)
[2017-02-23 02:24] LABS: ALBUMIN 3.6 g/dL (3.4-5.0); ALBUMIN/GLOBULIN RATIO 1.1 (1.0-1.7); ALK PHOS 91 U/L (46-116); ALT (SGPT) 44 U/L (16-63); ANION GAP 9 (6-14); AST (SGOT) 18 U/L (15-37); BLOOD UREA NITROGEN 17 mg/dL (8-26); BUN/CREATININE RATIO 13 (6-20); CALCIUM 7.9 mg/dL (8.5-10.1); CARBON DIOXIDE 28 mmol/L (21-32); CHLORIDE 101 mmol/L (98-107); CREATININE 1.3 mg/dL (0.7-1.3); GFR 69.9; GLUCOSE 309 mg/dL (70-99); POTASSIUM 4.1 mmol/L (3.5-5.1); SODIUM 138 mmol/L (136-145); TOTAL BILIRUBIN 0.3 mg/dL (0.2-1.0); TOTAL PROTEIN 6.8 g/dL (6.4-8.2)
[2017-02-23 02:36] LABS: TROPONINI < 0.017 ng/mL (0.000-0.055)
[2017-02-23 08:28] LABS: POC GLUCOSE 218 mg/dL (70-99)
[2017-02-23] MEDS: MORPHINE SULFATE 4 MG/ML DISP.SYRIN. IV ×2 (08:40→18:32)
[2017-02-23] MEDS: LOSARTAN POTASSIUM 50 MG TABLET. PO ×2 (08:41→09:00)
[2017-02-23] MEDS: PANTOPRAZOLE 40 MG TABLET.DR. PO (08:42)
[2017-02-23] MEDS: GABAPENTIN 300 MG CAPSULE. PO ×3 (08:42→21:56)
[2017-02-23] MEDS: FAMOTIDINE 20 MG TABLET. PO (08:42)
[2017-02-23] MEDS: ASPIRIN ENTERIC COATED 81 MG TABLET.DR. PO (08:42)
[2017-02-23] MEDS: amLODIPine BESYLATE 10 MG TABLET PO (08:42)
[2017-02-23] MEDS: INSULIN ASPART 300 UNITS/3 ML INSULN.PEN SQ ×3 (08:48→19:52)
[2017-02-23] MEDS: IPRATRPIUM/ALBUTEROL 0.5/2.5MG 3 ML NEBU. NEB ×4 (08:50→20:51)
[2017-02-23] MEDS: HYDROcodone/APAP 5/325MG 1 TAB TABLET PO (16:28)
[2017-02-23] MEDS: SUCRALFATE 1 GM/10 ML ORAL.SUSP. PEG ×2 (16:29→21:56)
[2017-02-23 16:50] LABS: POC GLUCOSE 235 mg/dL (70-99)
[2017-02-23 16:51] LABS: POC GLUCOSE 365 mg/dL (70-99)
[2017-02-23 19:38] LABS: POC GLUCOSE 310 mg/dL (70-99)
[2017-02-23 21:21] LABS: POC GLUCOSE 293 mg/dL (70-99)
[2017-02-23] MEDS: ATORVASTATIN CALCIUM 40 MG TABLET. PO (21:56)
[2017-02-23] MEDS: INSULIN DETEMIR 300 UNITS/3 ML INSULN.PEN. SQ (22:02)
[2017-02-24 03:46] LABS: HEMATOCRIT 43.4 % (39.0-53.0); HEMOGLOBIN 14.2 g/dL (13.0-17.5); MEAN CORPUSCULAR HEMOGLOBIN 28 pg (25-35); MEAN CORPUSCULAR HGB CONC 33 g/dL (31-37); MEAN CORPUSCULAR VOLUME 86 fL (79-100); PLATELET COUNT 234 x10^3/uL (140-400); RED BLOOD COUNT 5.05 x10^6/uL (4.30-5.70); RED CELL DISTRIBUTION WIDTH 14.5 % (11.5-14.5); WHITE BLOOD COUNT 8.4 x10^3/uL (4.0-11.0)
[2017-02-24 04:18] LABS: TROPONINI < 0.017 ng/mL (0.000-0.055)
[2017-02-24] MEDS: IPRATRPIUM/ALBUTEROL 0.5/2.5MG 3 ML NEBU. NEB ×2 (07:59→11:39)
[2017-02-24 08:29] LABS: POC GLUCOSE 305 mg/dL (70-99)
[2017-02-24] MEDS: SUCRALFATE 1 GM/10 ML ORAL.SUSP. PEG ×2 (09:15→12:39)
[2017-02-24] MEDS: amLODIPine BESYLATE 10 MG TABLET PO (09:15)
[2017-02-24] MEDS: ASPIRIN ENTERIC COATED 81 MG TABLET.DR. PO (09:16)
[2017-02-24] MEDS: GABAPENTIN 300 MG CAPSULE. PO ×2 (09:16→12:39)
[2017-02-24] MEDS: LOSARTAN POTASSIUM 50 MG TABLET. PO (09:16)
[2017-02-24] MEDS: PANTOPRAZOLE 40 MG TABLET.DR. PO (09:16)
[2017-02-24] MEDS: INSULIN ASPART 300 UNITS/3 ML INSULN.PEN SQ ×2 (09:23→12:48)
[2017-02-24 10:12] LABS: ALBUMIN 3.1 g/dL (3.4-5.0); ALBUMIN/GLOBULIN RATIO 0.8 (1.0-1.7); ALK PHOS 87 U/L (46-116); ALT (SGPT) 44 U/L (16-63); ANION GAP 9 (6-14); AST (SGOT) 21 U/L (15-37); BLOOD UREA NITROGEN 20 mg/dL (8-26); BUN/CREATININE RATIO 14 (6-20); CALCIUM 8.4 mg/dL (8.5-10.1); CARBON DIOXIDE 28 mmol/L (21-32); CHLORIDE 103 mmol/L (98-107); CREATININE 1.4 mg/dL (0.7-1.3); GFR 64.1; GLUCOSE 373 mg/dL (70-99); LIPASE 73 U/L (73-393); POTASSIUM 4.1 mmol/L (3.5-5.1); SODIUM 140 mmol/L (136-145); TOTAL BILIRUBIN 0.3 mg/dL (0.2-1.0); TOTAL PROTEIN 6.8 g/dL (6.4-8.2)
[2017-02-24] MEDS: IBUPROFEN 800 MG TABLET. PO (12:39)
[2017-02-24] MEDS: HYDROcodone/APAP 5/325MG 1 TAB TABLET PO (12:39)
[2017-02-24 12:43] LABS: POC GLUCOSE 349 mg/dL (70-99)
== END 2017-02-24 15:45 | disposition home or self-care (01) | DRG 556 ==
LOC: ER 11:45 → 5 SOUTH 14:13
DX: M79.1 Myalgia (principal); E11.42 Type 2 diabetes mellitus with diabetic polyneuropathy; E78.00 Pure hypercholesterolemia, unspecified; E78.5 Hyperlipidemia, unspecified; I10 Essential (primary) hypertension; J44.9 Chronic obstructive pulmonary disease, unspecified; K21.9 Gastro-esophageal reflux disease without esophagitis; F41.9 Anxiety disorder, unspecified; M19.90 Unspecified osteoarthritis, unspecified site; R79.1 Abnormal coagulation profile; Z79.4 Long term (current) use of insulin; Z90.49 Acquired absence of other specified parts of digestive tract; Z82.49 Family history of ischemic heart disease and other diseases of the circulatory system
CPT/HCPCS: 36415; 71045; 71275; 72125; 72131; 76700; 80053; 81001; 82550; 82553; 82962; 83690; 83880; 84484; 85025; 85027; 85379; 93005; 94640; 94760; 96374; 99285; 99285-25; J1815; J2270; J7030; J7620; Q9967

== ENCOUNTER 2018-01-17 10:53 | Emergency (ER) | payer OTHER ==
[~2018-01-17] VITALS: Ht 180.3 cm; Wt 95.3 kg
[~2018-01-17 10:53] MED LIST changes: +AMLO10TA6 PO; +ASPI-482 PO; +ATOR40TA PO; +ERGO500027 PO; +GABA-586 PO; +HYDR-3164 PO; -HYDR-971 PO; +INSU100I13 SQ; +INSU100I32 SQ; +LOSA100T7 PO; +NAPR-514 PO; -OXYC-323 PO; +OXYC1TAB15 PO; +PANT40TA5 PO
[2018-01-17] MEDS ORDERED: KETOROLAC 15 MG/ML VIAL. IV ONE (11:30)
--- NOTE | 2018-01-17 11:46 | PHYS DOC ---
Past Medical History Past Medical History: Diabetes-Type II, High Cholesterol, Hypertension, Unknown , Other Additional Past Medical Histor: NEUROPATHY IN BILATERAL FEET,ERECTILE DYSFUNCTION Past Surgical History: Cholecystectomy Alcohol Use: None Drug Use: None Adult General Chief Complaint Chief Complaint: TESTICULAR PAIN OR INJURY HPI HPI Patient was evaluated and treated during down time. Please see paper chart. Review of Systems Review of Systems Current Medications Current Medications Current Medications Medications (Trade) Dose Ordered Sig/Karli Start Time Stop Time Status Last Admin Dose Admin Ketorolac Tromethamine (Toradol 15mg Vial) 15 mg 1X ONCE 01/17/18 11:30 01/17/18 11:31 DC 01/17/18 11:42 15 MG Morphine Sulfate (Morphine Sulfate) 4 mg 1X ONCE 01/17/18 12:15 01/17/18 12:16 DC 01/17/18 12:21 4 MG Ondansetron HCl (Zofran) 4 mg 1X ONCE 01/17/18 12:15 01/17/18 12:16 DC 01/17/18 12:21 4 MG Allergies Allergies Allergies Coded Allergies Type Severity Reaction Last Updated Verified No Known Drug Allergies 06/11/15 No Physical Exam Physical Exam Current Patient Data Vital Signs Vital Signs Date Time Temp Pulse Resp B/P (MAP) Pulse Ox O2 Delivery O2 Flow Rate FiO2 01/17/18 13:00 86 18 159/93 (115) 98 Room Air 01/17/18 11:03 97.8 97.8 Lab Values Laboratory Tests Test 01/17/18 11:20 01/17/18 11:45 Urine Collection Type Unknown Urine Color Yellow Urine Clarity Clear Urine pH 5.5 Urine Specific [place] >=1.030 Urine Protein Negative mg/dL (NEG-TRACE) Urine Glucose (UA) >=1000 mg/dL (NEG) Urine Ketones (Stick) Negative mg/dL (NEG) Urine Blood Trace (NEG) Urine Nitrite Negative (NEG) Urine Bilirubin Negative (NEG) Urine Urobilinogen Dipstick 0.2 mg/dL (0.2 mg/dL) Urine Leukocyte Esterase Negative (NEG) Urine RBC Occ /HPF (0-2) Urine WBC Occ /HPF (0-4) Urine Squamous Epithelial Cells Few /LPF Urine Bacteria Few /HPF (0-FEW) Urine Mucus Mod /LPF White Blood Count 6.8 x10^3/uL (4.0-11.0) Red Blood Count 5.08 x10^6/uL (4.30-5.70) Hemoglobin 15.0 g/dL (13.0-17.5) Hematocrit 42.6 % (39.0-53.0) Mean Corpuscular Volume 84 fL (79-100) Mean Corpuscular Hemoglobin 30 pg (25-35) Mean Corpuscular Hemoglobin Concent 35 g/dL (31-37) Red Cell Distribution Width 13.9 % (11.5-14.5) Platelet Count 259 x10^3/uL (140-400) Neutrophils (%) (Auto) 62 % (31-73) Lymphocytes (%) (Auto) 31 % (24-48) Monocytes (%) (Auto) 5 % (0-9) Eosinophils (%) (Auto) 1 % (0-3) Basophils (%) (Auto) 1 % (0-3) Neutrophils # (Auto) 4.2 x10^3uL (1.8-7.7) Lymphocytes # (Auto) 2.1 x10^3/uL (1.0-4.8) Monocytes # (Auto) 0.4 x10^3/uL (0.0-1.1) Eosinophils # (Auto) 0.1 x10^3/uL (0.0-0.7) Basophils # (Auto) 0.1 x10^3/uL (0.0-0.2) Sodium Level 137 mmol/L (136-145) Potassium Level 3.8 mmol/L (3.5-5.1) Chloride Level 102 mmol/L (98-107) Carbon Dioxide Level 27 mmol/L (21-32) Anion Gap 8 (6-14) Blood Urea Nitrogen 21 mg/dL (8-26) Creatinine 1.4 mg/dL (0.7-1.3) H Estimated GFR (Cockcroft-Gault) 63.9 BUN/Creatinine Ratio 15 (6-20) Glucose Level 253 mg/dL (70-99) H Calcium Level 8.6 mg/dL (8.5-10.1) Total Bilirubin 0.5 mg/dL (0.2-1.0) Aspartate Amino Transferase (AST) 17 U/L (15-37) Alanine Aminotransferase (ALT) 27 U/L (16-63) Alkaline Phosphatase 95 U/L (46-116) Total Protein 7.7 g/dL (6.4-8.2) Albumin 3.4 g/dL (3.4-5.0) Albumin/Globulin Ratio 0.8 (1.0-1.7) L Laboratory Tests 01/17/18 11:45 Laboratory Tests 01/17/18 11:45 EKG EKG [] Radiology/Procedures Radiology/Procedures [] Course & Med Decision Making Course & Med Decision Making Pertinent Labs and Imaging studies reviewed. (See chart for details) [ER PHYSICIAN ATTENDING NOTE: I have personally seen and examined the patient, and agree with the history, physical exam, and plan, as documented by mid-level provider.] MD Malia Mchugh Disclaimer Dragon Disclaimer This electronic medical record was generated, in whole or in part, using a voice recognition dictation system. Departure Departure Impression: Primary Impression: Strain of right inguinal muscle Additional Impression: Erectile dysfunction Disposition: 01 HOME, SELF-CARE Condition: STABLE Referrals: NO PCP (PCP) Patient Instructions: Groin Strain Additional Instructions: Avoid heavy lifting for the next week. Fill prescription and use as directed. Follow up with your Primary care doctor for further evaluation of you erectile dysfunction and for continued groin pain. Return to the ER if symptoms worsen. Scripts Hydrocodone Bit/Acetaminophen (HYDROCODONE-APAP 5-325 ) 1 Each Tablet 1 TAB PO PRN Q6HRS PRN for PAIN for 3 Days, #10 TAB 0 Refills Prov: PANTERA NAGY APRN 01/17/18 Problem Qualifiers Primary Impression: Strain of right inguinal muscle Encounter type: initial encounter Qualified Codes: S39.013A - Strain of muscle, fascia and tendon of pelvis, initial encounter Additional Impression: Erectile dysfunction Erectile dysfunction type: unspecified Qualified Codes: N52.9 - Male erectile dysfunction, unspecified PANTERA NAGY APRN Jan 17, 2018 11:46 ANIKA SCOTT MD Jan 17, 2018 11:56
[2018-01-17 11:47] LABS: BILIRUBIN,URINE NEGATIVE (NEG); CLARITY,URINE CLEAR; COLOR,URINE YELLOW; NITRITE,URINE NEGATIVE (NEG); PH,URINE 5.5; PROTEIN,URINE NEGATIVE (NEG-TRACE); UROBILINOGEN,URINE 0.2 mg/dL (0.2 mg/dL)
[2018-01-17 12:02] LABS: BASO # 0.1 x10^3/uL (0.0-0.2); BASO % 1 % (0-3); EOS # 0.1 x10^3/uL (0.0-0.7); EOS % 1 % (0-3); HEMATOCRIT 42.6 % (39.0-53.0); LYMPH # 2.1 x10^3/uL (1.0-4.8); LYMPH % 31 % (24-48); MEAN CORPUSCULAR HEMOGLOBIN 30 pg (25-35); MEAN CORPUSCULAR HGB CONC 35 g/dL (31-37); MEAN CORPUSCULAR VOLUME 84 fL (79-100); MONO # 0.4 x10^3/uL (0.0-1.1); MONO % 5 % (0-9); NEUT # 4.2 x10^3uL (1.8-7.7); NEUT % 62 % (31-73); PLATELET COUNT 259 x10^3/uL (140-400); RED BLOOD COUNT 5.08 x10^6/uL (4.30-5.70); RED CELL DISTRIBUTION WIDTH 13.9 % (11.5-14.5); WHITE BLOOD COUNT 6.8 x10^3/uL (4.0-11.0)
[2018-01-17 12:03] LABS: CALCIUM 8.6 mg/dL (8.5-10.1); CREATININE 1.4 mg/dL (0.7-1.3)
[2018-01-17 12:04] LABS: GFR 63.9; POTASSIUM 3.8 mmol/L (3.5-5.1)
[2018-01-17 12:09] LABS: ALBUMIN 3.4 g/dL (3.4-5.0); ALBUMIN/GLOBULIN RATIO 0.8 (1.0-1.7); TOTAL BILIRUBIN 0.5 mg/dL (0.2-1.0); TOTAL PROTEIN 7.7 g/dL (6.4-8.2)
[2018-01-17 12:11] LABS: BACTERIA,URINE FEW /HPF (0-FEW); SQUAMOUS EPITHELIAL CELL,UR FEW /LPF
[2018-01-17 12:12] LABS: RBC,URINE OCC /HPF (0-2); WBC,URINE OCC /HPF (0-4)
[2018-01-17] MEDS ORDERED: ONDANSETRON PF 4 MG/2 ML VIAL. IV ONE (12:15)
[2018-01-17] MEDS ORDERED: MORPHINE SULFATE 4 MG/ML VIAL. IV ONE (12:15)
[2018-01-17] MEDS ORDERED: HYDR-2761 PO (12:46)
[2018-01-17 13:00] VITALS: BP 159/93
== END 2018-01-17 13:26 | disposition home or self-care (01) ==
LOC: ER 10:53
DX: S39.013A Strain of muscle, fascia and tendon of pelvis, initial encounter (principal); N52.9 Male erectile dysfunction, unspecified; E78.00 Pure hypercholesterolemia, unspecified; E11.40 Type 2 diabetes mellitus with diabetic neuropathy, unspecified; Z90.49 Acquired absence of other specified parts of digestive tract; X58.XXXA Exposure to other specified factors, initial encounter; Y93.89 Activity, other specified; Y92.89 Other specified places as the place of occurrence of the external cause; Y99.8 Other external cause status
CPT/HCPCS: 36415; 80053; 81001; 85025; 96374; 96375; 99283; J1885; J2270; J2405

== ENCOUNTER 2018-07-12 09:34 | Emergency (ER) | payer OTHER ==
[~2018-07-12] VITALS: Ht 180.3 cm; Wt 104.3 kg
[~2018-07-12 09:34] MED LIST changes: -AMLO10TA6 PO; +AMLO10TA8 PO; -GABA-586 PO; +GABA300C18 PO; +HYDR-2761 PO; -LINA290C PO; +LINZESS290 MCG PO; +LOSA100T14 PO; -LOSA100T7 PO; +OMEP20CA10 PO; -OMEP20CA9 PO
[2018-07-12 09:45] VITALS: BP 168/102
[2018-07-12 10:15] LABS: BILIRUBIN,URINE NEGATIVE (NEG); CLARITY,URINE CLEAR; COLOR,URINE YELLOW; NITRITE,URINE NEGATIVE (NEG); PROTEIN,URINE 30 mg/dL (NEG-TRACE)
[2018-07-12] MEDS ORDERED: MORPHINE SULFATE 10 MG/ML VIAL. SQ ONE (10:15)
[2018-07-12 10:28] LABS: BACTERIA,URINE FEW /HPF (0-FEW); HYALINE CASTS, URINE OCCASIONAL /HPF; RBC,URINE RARE /HPF (0-2); SQUAMOUS EPITHELIAL CELL,UR FEW /LPF
--- NOTE | 2018-07-12 10:43 | PHYS DOC ---
Past Medical History Past Medical History: Diabetes-Type II, High Cholesterol, Hypertension, U nknown, Other Additional Past Medical Histor: NEUROPATHY IN BILATERAL FEET,ERECTILE DYSFUNCTION Past Surgical History: Cholecystectomy Alcohol Use: None Drug Use: None Adult General Chief Complaint Chief Complaint: LOWER BACK PAIN OR INJURY [facility] HPI Patient is a 53 year old male who presents with complaining of low back pain. Patient complaining of right flank and lower back pain for the last 2 weeks as a constant pain that getting worse with walking and activity. Patient states the pain radiated to posterior of his thigh and complaining of numbness of his toes. Patient injury, fever and chills, abdominal pain, urinary and bowel incontinence, focal neuro deficit. Patient state he lifts heavy weight at his work and seen by his primary care physician and treated with ibuprofen and hydrocodone without improvement of his pain. Patient states he had history of low back pain previously that resolved spontaneously. Review of Systems Review of Systems Constitutional: Denies fever or chills [] Eyes: Denies change in visual acuity, redness, or eye pain [] HENT: Denies nasal congestion or sore throat [] Respiratory: Denies cough or shortness of breath [] Cardiovascular: No additional information not addressed in HPI [] GI: Denies abdominal pain, nausea, vomiting, bloody stools or diarrhea [] : Denies dysuria or hematuria [] Musculoskeletal: Reports back pain, denies joint pain [] Integument: Denies rash or skin lesions [] Neurologic: Denies headache, focal weakness, reports sensory changes [] Endocrine: Denies polyuria or polydipsia [] All other systems were reviewed and found to be within normal limits, except as documented in this note. Current Medications Current Medications Current Medications Medications (Trade) Dose Ordered Sig/[facility] Start Time Stop Time Status Last Admin Dose Admin Morphine Sulfate (Morphine Sulfate) 5 mg 1X ONCE 07/12/18 10:15 07/12/18 10:16 DC 07/12/18 10:18 5 MG Allergies Allergies Allergies Coded Allergies Type Severity Reaction Last Updated Verified No Known Drug Allergies 06/11/15 No Physical Exam Physical Exam Constitutional: Well developed, well nourished, moderate distress, non-toxic appearance. [] HENT: Normocephalic, atraumatic. Eyes: PERRLA, EOMI, conjunctiva normal, no discharge. [] Neck: Normal range of motion, no tenderness, supple, no stridor. [] Cardiovascular:Heart rate regular rhythm, no murmur [] Lungs & Thorax: Bilateral breath sounds clear to auscultation [] Abdomen: Bowel sounds normal, soft, no tenderness, no masses, no pulsatile masses. [] Skin: Warm, dry, no erythema, no rash. [] Back: No midline tenderness, right paraspinal muscle spasm, no CVA tenderness. [] Extremities: No tenderness, no cyanosis, no clubbing, ROM intact, no edema. [] Neurologic: Alert and oriented X 3, normal motor function, normal sensory function, no focal deficits noted. [] Psychologic: Affect normal, judgement normal, mood normal. [] Current Patient Data Vital Signs Vital Signs Date Time Temp Pulse Resp B/P (MAP) Pulse Ox O2 Delivery O2 Flow Rate FiO2 07/12/18 09:45 98.4 104 16 168/102 (124) 98 Room Air 98.4 Lab Values Laboratory Tests Test 07/12/18 10:05 07/12/18 10:37 Urine Collection Type Unknown Urine Color Yellow Urine Clarity Clear Urine pH 5.0 Urine Specific [place] >=1.030 Urine Protein 30 mg/dL (NEG-TRACE) Urine Glucose (UA) >=1000 mg/dL (NEG) Urine Ketones (Stick) Negative mg/dL (NEG) Urine Blood Negative (NEG) Urine Nitrite Negative (NEG) Urine Bilirubin Negative (NEG) Urine Urobilinogen Dipstick 1.0 mg/dL (0.2 mg/dL) Urine Leukocyte Esterase Negative (NEG) Urine RBC Rare /HPF (0-2) Urine WBC 1-4 /HPF (0-4) Urine Squamous Epithelial Cells Few /LPF Urine Bacteria Few /HPF (0-FEW) Urine Hyaline Casts Occasional /HPF Urine Mucus Mod /LPF Glucose (Fingerstick) 102 mg/dL (70-99) H EKG EKG [] Radiology/Procedures Radiology/Procedures [facility] [address] [place] [address] IMAGING REPORT Signed PATIENT: AMPARO CALLOWAY ACCOUNT: [id number] : 1965 LOCATION: ER AGE: 53 SEX: M EXAM STATUS: REG ER ORD. PHYSICIAN: SHERRI DIAZ MD REASON: back pain 2 weeks PROCEDURE: CT LUMBAR SPINE WO CONTRAST EXAM: CT lumbar spine without IV contrast CLINICAL HISTORY: Two-week history of back pain COMPARISON: None available. TECHNIQUE: Helical CT was performed through the lumbar spine. Axial, coronal and sagittal reformatted images were generated. PQRS compliance statement - One or more of the following individualized dose reduction techniques were utilized for this study: 1. Automated exposure control 2. Adjustment of the mA and/or kV according to patient size 3. Use of iterative reconstruction technique FINDINGS: For the purposes of this report, small ribs are seen at L1. L2-L5 are lumbar-type vertebral bodies without ribs. No evidence for acute fracture or subluxation. Vertebral body heights are preserved. Mild L5-S1 disc height loss. Small anterior endplate osteophytes are seen at multiple levels L3 and below. Aortic calcifications are seen. Cholecystectomy clips are partially profiled. Visualized retroperitoneum is grossly unremarkable. L1-L2: No significant central canal stenosis or neural foraminal narrowing. L2-L3: Mild generalized disc bulge results in no significant central canal stenosis or neural foraminal narrowing. L3-L4: No significant central canal stenosis or neural foraminal narrowing. L4-L5: Ligamentum flavum hypertrophy with generalized disc bulge and mild facet degenerative changes results in moderate central canal stenosis and trace inferior bilateral neural foraminal narrowing. L5-S1: Diffuse generalized disc bulge with ligamentum flavum hypertrophy results in mild central canal stenosis and mild bilateral neural foraminal narrowing. IMPRESSION: No evidence for acute fracture or subluxation. Mild multilevel degenerative changes as described in detail above, most prominent at L4-5 and L5-S1. Electronically signed by: Errol Davila MD (07/12/2018 10:45 AM) [facility] DICTATED and SIGNED BY: ERROL DAVLIA MD DATE: 07/12/18 1045 Course & Med Decision Making Course & Med Decision Making Pertinent Labs and Imaging studies reviewed. (See chart for details) Evaluation of patient in ER showed 53-year-old male patient with complaining of low back pain for 2 weeks. Patient had unremarkable physical exam except for painful range of motion. CT of lumbar spine showed degenerative joint disease. UA was unremarkable. Blood sugar was 102. Patient was advised to apply ice on his back and continue ibuprofen. Prescription for hydrocodone, Medrol Dosepak and Flexeril was given. Patient did not want to have work excuse. Dragon Disclaimer Dragon Disclaimer This electronic medical record was generated, in whole or in part, using a voice recognition dictation system. Departure Departure Impression: Primary Impression: Sciatica of right side Disposition: HOME, SELF-CARE (@1058) Condition: IMPROVED Referrals: NO PCP (PCP) Patient Instructions: Sciatica Additional Instructions: Drink plenty of liquids Follow-up with your primary care physician in 3-5 days Return to ER if not getting better Apply ice on affected area Scripts Cyclobenzaprine Hcl (CYCLOBENZAPRINE HCL) 10 Mg Tablet 1 TAB PO TID, #21 TAB Prov: SHERRI DIAZ MD 07/12/18 Hydrocodone/Apap 5-325 (NORCO 5-325 TABLET) 1 Each Tablet 1 TAB PO PRN Q6HRS PRN for PAIN, #12 TAB 0 Refills Prov: SHERRI DIAZ MD 07/12/18 Methylprednisolone (MEDROL) 4 Mg Tab.ds.pk 1 PKG PO UD for inflammation, #1 PKG Prov: SHERRI DIAZ MD 07/12/18 SHERRI DIAZ MD July 12, 2018 10:43
--- NOTE | 2018-07-12 10:48 | RAD ---
EXAM: CT lumbar spine without IV contrast CLINICAL HISTORY: Two-week history of back pain COMPARISON: None available. TECHNIQUE: Helical CT was performed through the lumbar spine. Axial, coronal and sagittal reformatted images were generated. PQRS compliance statement - One or more of the following individualized dose reduction techniques were utilized for this study: 1. Automated exposure control 2. Adjustment of the mA and/or kV according to patient size 3. Use of iterative reconstruction technique FINDINGS: For the purposes of this report, small ribs are seen at L1. L2-L5 are lumbar-type vertebral bodies without ribs. No evidence for acute fracture or subluxation. Vertebral body heights are preserved. Mild L5-S1 disc height loss. Small anterior endplate osteophytes are seen at multiple levels L3 and below. Aortic calcifications are seen. Cholecystectomy clips are partially profiled. Visualized retroperitoneum is grossly unremarkable. L1-L2: No significant central canal stenosis or neural foraminal narrowing. L2-L3: Mild generalized disc bulge results in no significant central canal stenosis or neural foraminal narrowing. L3-L4: No significant central canal stenosis or neural foraminal narrowing. L4-L5: Ligamentum flavum hypertrophy with generalized disc bulge and mild facet degenerative changes results in moderate central canal stenosis and trace inferior bilateral neural foraminal narrowing. L5-S1: Diffuse generalized disc bulge with ligamentum flavum hypertrophy results in mild central canal stenosis and mild bilateral neural foraminal narrowing. IMPRESSION: No evidence for acute fracture or subluxation. Mild multilevel degenerative changes as described in detail above, most prominent at L4-5 and L5-S1. Electronically signed by: Errol Davila MD (07/12/2018 10:45 AM) [id number]
[2018-07-12] MEDS ORDERED: CYCL10TA2 PO (11:01)
[2018-07-12] MEDS ORDERED: HYDR-3164 PO (11:01)
[2018-07-12] MEDS ORDERED: METH4TAB2 PO (11:01)
== END 2018-07-12 11:14 | disposition home or self-care (01) ==
LOC: ER 09:34
DX: M54.41 Lumbago with sciatica, right side (principal); R20.0 Anesthesia of skin; E78.00 Pure hypercholesterolemia, unspecified; I10 Essential (primary) hypertension; E11.40 Type 2 diabetes mellitus with diabetic neuropathy, unspecified; Z90.49 Acquired absence of other specified parts of digestive tract
CPT/HCPCS: 72131; 81001; 82962; 96372; 99285; J2270

== ENCOUNTER 2018-07-23 00:28 | Emergency (ER) | payer OTHER ==
[~2018-07-23] VITALS: Ht 180.3 cm; Wt 104.3 kg
[~2018-07-23 00:28] MED LIST changes: +METH4TAB2 PO
--- NOTE | 2018-07-23 02:25 | PHYS DOC ---
Past Medical History Past Medical History: Diabetes-Type II, High Cholesterol, Hypertension, U nknown, Other Additional Past Medical Histor: NEUROPATHY IN BILATERAL FEET,ERECTILE DYSFUNCTION Past Surgical History: Cholecystectomy Alcohol Use: None Drug Use: None Adult General Chief Complaint Chief Complaint: BACK PAIN - NO INJURY HPI HPI Patient is a 53 year old [f__sex] who presents with [] Review of Systems Review of Systems Constitutional: Denies fever or chills [] Eyes: Denies change in visual acuity, redness, or eye pain [] HENT: Denies nasal congestion or sore throat [] Respiratory: Denies cough or shortness of breath [] Cardiovascular: No additional information not addressed in HPI [] GI: Denies abdominal pain, nausea, vomiting, bloody stools or diarrhea [] : Denies dysuria or hematuria [] Musculoskeletal: Denies back pain or joint pain [] Integument: Denies rash or skin lesions [] Neurologic: Denies headache, focal weakness or sensory changes [] Endocrine: Denies polyuria or polydipsia [] All other systems were reviewed and found to be within normal limits, except as documented in this note. Current Medications Current Medications Current Medications Medications (Trade) Dose Ordered Sig/Karli Start Time Stop Time Status Last Admin Dose Admin Acetaminophen/ Hydrocodone Bitart (Lortab 10/325) 1 tab 1X ONCE 07/23/18 02:30 07/23/18 02:31 DC Cyclobenzaprine HCl (Flexeril) 10 mg 1X ONCE 07/23/18 02:30 07/23/18 02:31 DC Ketorolac Tromethamine (Toradol 30mg Vial) 30 mg 1X ONCE 07/23/18 02:30 07/23/18 02:31 DC Allergies Allergies Allergies Coded Allergies Type Severity Reaction Last Updated Verified No Known Drug Allergies 06/11/15 No Physical Exam Physical Exam Constitutional: Well developed, well nourished, no acute distress, non-toxic appearance. [] HENT: Normocephalic, atraumatic, bilateral external ears normal, oropharynx moist, no oral exudates, nose normal. [] Eyes: PERRLA, EOMI, conjunctiva normal, no discharge. [] Neck: Normal range of motion, no tenderness, supple, no stridor. [] Cardiovascular:Heart rate regular rhythm, no murmur [] Lungs & Thorax: Bilateral breath sounds clear to auscultation [] Abdomen: Bowel sounds normal, soft, no tenderness, no masses, no pulsatile masses. [] Skin: Warm, dry, no erythema, no rash. [] Back: No tenderness, no CVA tenderness. [] Extremities: No tenderness, no cyanosis, no clubbing, ROM intact, no edema. [] Neurologic: Alert and oriented X 3, normal motor function, normal sensory function, no focal deficits noted. [] Psychologic: Affect normal, judgement normal, mood normal. [] EKG EKG [] Radiology/Procedures Radiology/Procedures [] Course & Med Decision Making Course & Med Decision Making Pertinent Labs and Imaging studies reviewed. (See chart for details) [] Dragon Disclaimer Dragon Disclaimer This electronic medical record was generated, in whole or in part, using a voice recognition dictation system. Departure Departure Impression: Primary Impression: Back pain Additional Impression: Sciatica Disposition: HOME, SELF-CARE Condition: STABLE Referrals: NO PCP (PCP) CARRIE TERRELL MD Patient Instructions: Back Pain, Adult, [id number], Sciatica, [id number] Scripts Lidocaine (Lidocaine) 1 Each Adh..patch 1 EACH TP Q12HR, #10 PATCH Keep new patch on for 12 hour then leave patch off for next 12 hours before applying new patch. Prov: DONNIE ROWE DO 07/23/18 Hydrocodone/Apap 5-325 (NORCO 5-325 TABLET) 1 Each Tablet 1 TAB PO PRN Q6HRS PRN for PAIN, #10 TAB 0 Refills Prov: DONNIE ROWE DO 07/23/18 Orphenadrine Citrate (ORPHENADRINE CITRATE) 100 Mg Tablet.er 100 MG PO BID PRN for MUSCLE PAIN, #14 Prov: DONNIE ROWE DO 07/23/18 Problem Qualifiers Primary Impression: Back pain Back pain location: low back pain Chronicity: acute Back pain laterality: right Sciatica presence: with sciatica Sciatica laterality: sciatica of right side Qualified Codes: M54.41 - Lumbago with sciatica, right side Additional Impression: Sciatica Laterality: right Qualified Codes: M54.31 - Sciatica, right side DONNIE ROWE DO Jul 23, 2018 02:25
[2018-07-23] MEDS ORDERED: CYCLOBENZAPRINE 10 MG TABLET. PO ONE (02:30)
[2018-07-23] MEDS ORDERED: HYDROcodone/APAP 10/325 1 TAB TABLET PO ONE (02:30)
[2018-07-23] MEDS ORDERED: KETOROLAC 30 MG/ML VIAL. IM ONE (02:30)
[2018-07-23] MEDS ORDERED: HYDR-3164 PO (02:34)
[2018-07-23] MEDS ORDERED: ORPH100T PO (02:34)
[2018-07-23] MEDS ORDERED: LIDO700A39 TP (02:34)
[2018-07-23] MEDS ORDERED: LIDOCAINE (700MG/PATCH) PATCH. TD ONE (02:45)
[2018-07-23 03:15] VITALS: BP 186/88
== END 2018-07-23 03:20 | disposition home or self-care (01) ==
LOC: ER 00:28
DX: M54.41 Lumbago with sciatica, right side (principal); E78.00 Pure hypercholesterolemia, unspecified; I10 Essential (primary) hypertension; E11.40 Type 2 diabetes mellitus with diabetic neuropathy, unspecified; Z90.49 Acquired absence of other specified parts of digestive tract
CPT/HCPCS: 96372; 99284; J1885

== ENCOUNTER 2019-01-29 11:30 | Emergency (ER) | payer OTHER ==
[~2019-01-29] VITALS: Ht 180.3 cm; Wt 104.3 kg
[~2019-01-29 11:30] MED LIST changes: +LIDO700A21 TP; +OMEP-229 PO; -OMEP20CA10 PO; +ORPH100T PO; -PANT40TA3 PO; -PANT40TA5 PO; +PANT40TA77 PO
[2019-01-29] MEDS ORDERED: KETOROLAC 15 MG/ML VIAL. IV STA (11:50)
[2019-01-29] MEDS ORDERED: ACETAMINOPHEN 500 MG TABLET PO STA ×2 (11:52→13:35)
--- NOTE | 2019-01-29 11:56 | PHYS DOC ---
Past Medical History Past Medical History: Diabetes-Type II, High Cholesterol, Hypertension, Unknown, Other Additional Past Medical Histor: NEUROPATHY IN BILATERAL FEET,ERECTILE DYSFUNCTION Past Surgical History: Cholecystectomy Alcohol Use: None Drug Use: None Adult General Chief Complaint Chief Complaint: HEADACHE HPI HPI Patient is a 53 year old male who presents with headache, body aches, cough, shortness breath, nausea, vomiting, hot and cold since Tuesday. The patient rates his pain 10 out of 10 in severity due to a cough. Has not been taking medicine for symptoms. Review of Systems Review of Systems Constitutional: Reports body aches, fever and chills [] Eyes: Denies change in visual acuity, redness, or eye pain [] HENT: Reports runny nose, and congestion. Respiratory: Reports cough and shortness of breath. Cardiovascular: No additional information not addressed in HPI [] GI: Reports nausea, and vomiting. Denies abdominal pain, bloody stools or diarrhea [] : Denies dysuria or hematuria [] Musculoskeletal: Denies back pain or joint pain [] Integument: Denies rash or skin lesions [] Neurologic: Reports headache denies focal weakness or sensory changes [] Endocrine: Denies polyuria or polydipsia [] Complete systems were reviewed and found to be within normal limits, except as documented in this note. Current Medications Current Medications Current Medications Medications (Trade) Dose Ordered Sig/Karli Start Time Stop Time Status Last Admin Dose Admin Acetaminophen (Tylenol) 500 mg 1X STAT 01/29/19 11:52 01/29/19 11:59 DC 01/29/19 12:11 500 MG Ketorolac Tromethamine (Toradol 15mg Vial) 10 mg 1X STAT 01/29/19 11:50 01/29/19 11:59 DC 01/29/19 12:10 10 MG Ondansetron HCl (Zofran) 4 mg 1X ONCE 01/29/19 12:00 01/29/19 12:01 DC 01/29/19 12:10 4 MG Sodium Chloride 1,000 ml @ 1,000 mls/hr 1X ONCE 01/29/19 12:00 01/29/19 12:59 DC 01/29/19 12:10 1,000 MLS/HR Allergies Allergies Allergies Coded Allergies Type Severity Reaction Last Updated Verified No Known Drug Allergies 06/11/15 No Physical Exam Physical Exam Constitutional: Well developed, well nourished, no acute distress, non-toxic appearance. [] HENT: Normocephalic, atraumatic, bilateral external ears normal, oropharynx moist, no oral exudates, nose normal. [] Eyes: PERRLA, EOMI, conjunctiva normal, no discharge. [] Cardiovascular:Heart rate regular rhythm, no murmur [] Lungs & Thorax: Bilateral breath sounds clear to auscultation [] Abdomen: Bowel sounds normal, soft, no tenderness, no masses, no pulsatile ma sses. [] Skin: Warm, dry, no erythema, no rash. [] Back: No tenderness, no CVA tenderness. [] Neurologic: Alert and oriented X 3, normal motor function, normal sensory function, no focal deficits noted. [] Psychologic: Affect normal, judgement normal, mood normal. [] Current Patient Data Vital Signs Vital Signs Date Time Temp Pulse Resp B/P (MAP) Pulse Ox O2 Delivery O2 Flow Rate FiO2 01/29/19 11:35 99.6 113 20 165/95 (118) 98 Room Air 99.6 Lab Values Laboratory Tests Test 01/29/19 11:43 01/29/19 12:04 Glucose (Fingerstick) 245 mg/dL (70-99) H Influenza Type A Antigen Positive (NEGATIVE) Influenza Type B Antigen Negative (NEGATIVE) White Blood Count 8.3 x10^3/uL (4.0-11.0) Red Blood Count 5.29 x10^6/uL (4.30-5.70) Hemoglobin 14.9 g/dL (13.0-17.5) Hematocrit 44.5 % (39.0-53.0) Mean Corpuscular Volume 84 fL (79-100) Mean Corpuscular Hemoglobin 28 pg (25-35) Mean Corpuscular Hemoglobin Concent 34 g/dL (31-37) Red Cell Distribution Width 13.4 % (11.5-14.5) Platelet Count 220 x10^3/uL (140-400) Neutrophils (%) (Auto) 89 % (31-73) H Lymphocytes (%) (Auto) 5 % (24-48) L Monocytes (%) (Auto) 5 % (0-9) Eosinophils (%) (Auto) 0 % (0-3) Basophils (%) (Auto) 1 % (0-3) Neutrophils # (Auto) 7.4 x10^3/uL (1.8-7.7) Lymphocytes # (Auto) 0.4 x10^3/uL (1.0-4.8) L Monocytes # (Auto) 0.4 x10^3/uL (0.0-1.1) Eosinophils # (Auto) 0.0 x10^3/uL (0.0-0.7) Basophils # (Auto) 0.1 x10^3/uL (0.0-0.2) Segmented Neutrophils % 89 % (35-66) H Band Neutrophils % 1 % (0-9) Lymphocytes % 3 % (24-48) L Monocytes % 6 % (0-10) Eosinophils % 1 % (0-5) Platelet Estimate Adequate (ADEQUATE) Sodium Level 131 mmol/L (136-145) L Potassium Level 4.4 mmol/L (3.5-5.1) Chloride Level 96 mmol/L (98-107) L Carbon Dioxide Level 27 mmol/L (21-32) Anion Gap 8 (6-14) Blood Urea Nitrogen 15 mg/dL (8-26) Creatinine 1.6 mg/dL (0.7-1.3) H Estimated GFR (Cockcroft-Gault) 54.6 BUN/Creatinine Ratio 9 (6-20) Glucose Level 282 mg/dL (70-99) H Calcium Level 8.7 mg/dL (8.5-10.1) Magnesium Level 2.1 mg/dL (1.8-2.4) Total Bilirubin 0.5 mg/dL (0.2-1.0) Aspartate Amino Transferase (AST) 17 U/L (15-37) Alanine Aminotransferase (ALT) 23 U/L (16-63) Alkaline Phosphatase 92 U/L (46-116) Troponin I Quantitative < 0.017 ng/mL (0.000-0.055) Total Protein 8.3 g/dL (6.4-8.2) H Albumin 3.6 g/dL (3.4-5.0) Albumin/Globulin Ratio 0.8 (1.0-1.7) L Laboratory Tests 01/29/19 12:04 Laboratory Tests 01/29/19 12:04 EKG EKG [] Radiology/Procedures Radiology/Procedures [][facility] [address] [place] [address] IMAGING REPORT Signed PATIENT: AMPARO GOMEZ ACCOUNT: [id number] : 1965 LOCATION: ER AGE: 53 SEX: M EXAM STATUS: REG ER ORD. PHYSICIAN: DONNIE BOCANEGRA APRN REASON: cough, fever PROCEDURE: CHEST PA & LATERAL CHEST PA LATERAL History: Cough and fever Comparison: 02/22/2017 Portable Chest X-ray Exam, 02/22/2017 CT of the chest. Two-view chest x-ray exam of 06/22/2015 Findings: Frontal and lateral views of chest were obtained. The cardiomediastinal silhouette is normal. Pulmonary vasculature is normal. The lungs are clear other than minimal interstitial thickening and punctate nodularity which is stable compared to previous exam.. No pleural effusion or pneumothorax is seen. There is no acute bone abnormality. Right upper quadrant surgical clips are present. IMPRESSION: No acute cardiopulmonary process. No significant changes. Electronically signed by: Williams Michel MD (01/29/2019 12:57 PM) [facility] DICTATED and SIGNED BY: WILLIAMS MICHEL MD DATE: 01/29/19 1257 Course & Med Decision Making Course & Med Decision Making Pertinent Labs and Imaging studies reviewed. (See chart for details) Will get Labs, Chest x-ray, influenza, and give supportive care. Flu A is positive. Creatinine is at baseline. Sodium is 131 likely due to dehydration. Imaging is unremarkable. Dragon Disclaimer Dragon Disclaimer This electronic medical record was generated, in whole or in part, using a voice recognition dictation system. Departure Departure Impression: Primary Impression: Influenza A Disposition: HOME, SELF-CARE Condition: STABLE Referrals: NO PCP (PCP) Patient Instructions: Fever, Influenza A (H1N1) Additional Instructions: Thank you for visiting [facility]. We appreciate you trusting us with your care. If any additional problems come up don't hesitate to return to visit us. Please follow up with your primary care provider so they can plan additional care if needed and know about the problem that you had. If symptoms worsen come back to the Emergency Department. Any concerning symptoms that start such as chest pain, shortness of air, weakness or numbness on one side of the body, running high fevers or any other concerning symptoms return to the ER. Please be aware that diabetes can cause your sugars to fluctuate while you are sick. This can cause additional issues. Please check your sugars often to ensure they are staying in a safe range and if you are on insulin please take as instructed by your primary care doctor. If you have any questions about this please let us know or contact your primary care provider for additional instruction about taking your insulin while you are sick. If you get concerned regarding your sugar while at home please do not hesitate to come back to the ER. Please make sure to drink plenty of fluids. Return if unable to keep fluids down. Please fill your medications at any pharmacy and follow the prescription instructions. Scripts Ondansetron (ONDANSETRON ODT) 4 Mg Tab.rapdis 1 TAB PO PRN Q6-8HRS PRN for NAUSEA, #16 TAB Prov: DONNIE BOCANEGRA APRN 01/29/19 DONNIE BOCANEGRA APRN Jan 29, 2019 11:56
[2019-01-29] MEDS ORDERED: ONDANSETRON PF 4 MG/2 ML VIAL. IV ONE (12:00)
[2019-01-29] MEDS ORDERED: IV NORMAL SALINE 1000ML BAG 1,000 ML IV ONE (12:00)
[2019-01-29 12:11] LABS: BASO # 0.1 x10^3/uL (0.0-0.2); BASO % 1 % (0-3); EOS % 0 % (0-3); HEMATOCRIT 44.5 % (39.0-53.0); HEMOGLOBIN 14.9 g/dL (13.0-17.5); LYMPH # 0.4 x10^3/uL (1.0-4.8); LYMPH % 5 % (24-48); MEAN CORPUSCULAR HEMOGLOBIN 28 pg (25-35); MEAN CORPUSCULAR HGB CONC 34 g/dL (31-37); MEAN CORPUSCULAR VOLUME 84 fL (79-100); MONO # 0.4 x10^3/uL (0.0-1.1); MONO % 5 % (0-9); NEUT # 7.4 x10^3/uL (1.8-7.7); NEUT % 89 % (31-73); PLATELET COUNT 220 x10^3/uL (140-400); RED BLOOD COUNT 5.29 x10^6/uL (4.30-5.70); RED CELL DISTRIBUTION WIDTH 13.4 % (11.5-14.5); WHITE BLOOD COUNT 8.3 x10^3/uL (4.0-11.0)
[2019-01-29 12:18] LABS: INFLUENZA A PATIENT POSITIVE (NEGATIVE); INFLUENZA B PATIENT NEGATIVE (NEGATIVE)
[2019-01-29 12:20] LABS: CALCIUM 8.7 mg/dL (8.5-10.1); CREATININE 1.6 mg/dL (0.7-1.3); GFR 54.6; POTASSIUM 4.4 mmol/L (3.5-5.1)
[2019-01-29 12:26] LABS: ALBUMIN 3.6 g/dL (3.4-5.0); ALBUMIN/GLOBULIN RATIO 0.8 (1.0-1.7); MAGNESIUM 2.1 mg/dL (1.8-2.4); TOTAL BILIRUBIN 0.5 mg/dL (0.2-1.0); TOTAL PROTEIN 8.3 g/dL (6.4-8.2)
--- NOTE | 2019-01-29 12:59 | RAD ---
CHEST PA LATERAL History: Cough and fever Comparison: 02/22/2017 Portable Chest X-ray Exam, 02/22/2017 CT of the chest. Two-view chest x-ray exam of 06/22/2015 Findings: Frontal and lateral views of chest were obtained. The cardiomediastinal silhouette is normal. Pulmonary vasculature is normal. The lungs are clear other than minimal interstitial thickening and punctate nodularity which is stable compared to previous exam.. No pleural effusion or pneumothorax is seen. There is no acute bone abnormality. Right upper quadrant surgical clips are present. IMPRESSION: No acute cardiopulmonary process. No significant changes. Electronically signed by: Williams Kennedy MD (01/29/2019 12:57 PM) [facility]
[2019-01-29 13:13] LABS: % BANDS 1 % (0-9); % EOS 1 % (0-5); % LYMPHS 3 % (24-48); % MONOS 6 % (0-10); % SEGS 89 % (35-66)
[2019-01-29 13:14] LABS: PLT ESTIMATE ADEQUATE (ADEQUATE)
[2019-01-29] MEDS ORDERED: ONDA4TAB12 PO (13:31)
[2019-01-29 13:36] VITALS: BP 163/87
[2019-01-29] MEDS ORDERED: HYDROcodone/APAP 5/325MG 1 TAB TABLET PO ONE (14:00)
== END 2019-01-29 13:36 | disposition home or self-care (01) ==
LOC: ER 11:30
DX: J10.1 Influenza due to other identified influenza virus with other respiratory manifestations (principal); E78.00 Pure hypercholesterolemia, unspecified; E11.9 Type 2 diabetes mellitus without complications; I10 Essential (primary) hypertension
CPT/HCPCS: 36415; 71046; 80053; 82962; 83735; 84484; 85007; 85025; 87804; 96361; 96374; 96375; 99285; J1885; J2405; J7030

== ENCOUNTER 2020-08-11 14:38 | Emergency (ER) | payer OTHER ==
[~2020-08-11] VITALS: Ht 180.3 cm; Wt 106.3 kg
[~2020-08-11 14:38] MED LIST changes: +AMLO-187 PO; -AMLO10TA8 PO; -LISI-334 PO; +LISI20TA18 PO; -OMEP-229 PO; +OMEP20CA16 PO; +ONDA4TAB12 PO
--- NOTE | 2020-08-11 17:19 | PHYS DOC ---
Past Medical History Past Medical History: Diabetes-Type II, Hypertension Additional Past Medical Histor: NEUROPATHY IN BILATERAL FEET,ERECTILE DYSFUNCTION Past Surgical History: Cholecystectomy Smoking Status: Never Smoker Alcohol Use: None Drug Use: None General Adult EDM: Chief Complaint: SHOULDER INJURY HPI: HPI: Patient is a 55 year old man with history of diabetes type 2, hypertension, who presents to the ED today complaining of 10 out of 10 right lateral neck pain radiating to the right upper extremity with tingling and numbness to the right upper extremity, symptoms began July 20, 2020 while at work, 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 He states he reported to his boss his symptoms but they did not do anything for him. He states has been taking ibuprofen with no relief. Review of Systems: Review of Systems: Constitutional: Denies fever or chills. [] Eyes: Denies change in visual acuity. [] HENT: Denies nasal congestion or sore throat. [] Respiratory: Denies cough or shortness of breath. [] Cardiovascular: Denies chest pain or edema. [] GI: Denies abdominal pain, nausea, vomiting, bloody stools or diarrhea. [] : Denies dysuria. [] Musculoskeletal: Reports right neck pain radiating to the right upper extremity, denies back pain Integument: Denies rash. [] Neurologic: Denies headache, focal weakness or sensory changes. [] Psychiatric: Denies depression or anxiety. [] Heart Score: C/O Chest Pain: N/A Risk Factors: Risk Factors: DM, Current or recent (<one month) smoker, HTN, HLP, family history of CAD, obesity. Risk Scores: Score 0 - 3: 2.5% MACE over next 6 weeks - Discharge Home Score 4 - 6: 20.3% MACE over next 6 weeks - Admit for Clinical Observation Score 7 - 10: 72.7% MACE over next 6 weeks - Early Invasive Strategies Allergies: Allergies: Allergies Coded Allergies Type Severity Reaction Last Updated Verified No Known Drug Allergies 06/11/15 No Physical Exam: PE: Constitutional: Well developed, well nourished, no acute distress, non-toxic appearance. [] HENT: Normocephalic, atraumatic, bilateral external ears normal, oropharynx moist, no oral exudates, nose normal. [] Eyes: PERRLA, EOMI, conjunctiva normal, no discharge. [] Neck: Normal range of motion, no tenderness, supple, no stridor. [] Cardiovascular:Heart rate regular rhythm, no murmur [] Lungs & Thorax: Bilateral breath sounds clear to auscultation [] Abdomen: Bowel sounds normal, soft, no tenderness, no masses, no pulsatile masses. [] Skin: Warm, dry, no erythema, no rash. [] Back: No tenderness, no CVA tenderness. [] Extremities: No tenderness, no cyanosis, no clubbing, ROM intact, 5 out of 5 strength bilateral upper extremities, adequate radial, medial, ulnar sensation to the right upper extremity. +2 right radial pulse. Neurologic: Alert and oriented X 3, normal motor function, normal sensory function, no focal deficits noted. Psychologic: Affect normal, judgement normal, mood normal. [] Current Patient Data: Vital Signs: Vital Signs Date Time Temp Pulse Resp B/P (MAP) Pulse Ox O2 Delivery O2 Flow Rate FiO2 08/11/20 15:12 98.3 94 16 184/110 (134) 99 Room Air 98.3 EKG: EKG: [] Radiology/Procedures: Radiology/Procedures: [] Course & Med Decision Making: Course & Med Decision Making Pertinent Labs and Imaging studies reviewed. (See chart for details) This is a 55-year-old male patient presenting to the ED today complaining of right lateral neck pain radiating to the right upper extremity with numbness and tingling to the right fingers. Symptoms have been going on since July 20, 2020. This appears to be radicular pain. Blood pressure was also noted at 118/110 with a heart rate of 94, history of uncontrolled hypertension, has no PCP. Will give him clonidine in the ED and start him on amlodipine which he was on before, recommended following up with the PCP from the list provided. Provided return precautions. Dragon Disclaimer: Malia Disclaimer: This electronic medical record was generated, in whole or in part, using a voice recognition dictation system. Departure Departure Impression: Primary Impression: Cervical radicular pain Additional Impression: Accelerated hypertension Disposition: HOME / SELF CARE / HOMELESS Condition: STABLE Referrals: NO PCP (PCP) MURALI DAVIDSON MD Patient Instructions: Cervical Radiculopathy, [id number], Hypertension Additional Instructions: You are seen in the emergency room, you are noted to have cervical radiculopathy pain. We ask you to use the prescribed medications as ordered. Continue following up with jaime trevizo if you have hina or her primary care doctor from the list provided. Also provided you an orthopedic doctor. Blood pressure was high in the emergency room. We put you on amlodipine which you have taken before for blood pressure. Ensure to take this medicine and follow-up with your primary care doctor Scripts Amlodipine Besylate (AMLODIPINE BESYLATE) 10 Mg Tablet 10 MG PO DAILY, #90 TAB Prov: ELAINE CLEMENTS APRN 08/11/20 Diclofenac Potassium (DICLOFENAC POTASSIUM) 50 Mg Tablet 1 TAB PO BID, #20 TAB 0 Refills Prov: ELAINE CLEMENTS APRN 08/11/20 Gabapentin (GABAPENTIN ) 300 Mg Capsule 300 MG PO TID, #30 CAP Prov: ELAINE CLEMENTS APRN 08/11/20 Cyclobenzaprine Hcl (CYCLOBENZAPRINE HCL) 10 Mg Tablet 1 TAB PO TID, #30 TAB Prov: ELAINE CLEMENTS APRN 08/11/20 ELAINE CLEMENTS APRN Aug 11, 2020 17:19
[2020-08-11] MEDS ORDERED: GABAPENTIN 300 MG CAPSULE. PO STA (17:28)
[2020-08-11] MEDS ORDERED: HYDROcodone/APAP 5/325MG 1 TAB TABLET PO ONE (17:30)
[2020-08-11] MEDS ORDERED: cloNIDine HCL 0.1 MG TABLET PO ONE (17:30)
[2020-08-11] MEDS ORDERED: CYCLOBENZAPRINE 10 MG TABLET. PO ONE (17:30)
[2020-08-11] MEDS ORDERED: GABA300C18 PO (17:37)
[2020-08-11] MEDS ORDERED: DICL50TA2 PO (17:37)
[2020-08-11] MEDS ORDERED: AMLO-187 PO (17:37)
[2020-08-11] MEDS ORDERED: CYCL10TA2 PO (17:37)
[2020-08-11 17:55] VITALS: BP 163/100
== END 2020-08-11 18:15 | disposition home or self-care (01) ==
LOC: ER 14:38
DX: M54.12 Radiculopathy, cervical region (principal); I10 Essential (primary) hypertension; E11.40 Type 2 diabetes mellitus with diabetic neuropathy, unspecified
CPT/HCPCS: 99284

== ENCOUNTER 2021-01-19 05:09 | Emergency (ER) | payer OTHER ==
[~2021-01-19] VITALS: Ht 180.3 cm; Wt 104.5 kg
[~2021-01-19 05:09] MED LIST changes: +CYCL10TA19 PO; -CYCL10TA2 PO; +DICL50TA2 PO
[2021-01-19] MEDS ORDERED: ACETAMINOPHEN 325 MG TABLET. PO ONE ×2 (05:30→05:45)
--- NOTE | 2021-01-19 05:36 | PHYS DOC ---
Past Medical History Past Medical History: Diabetes-Type II, Hypertension Additional Past Medical Histor: NEUROPATHY IN BILATERAL FEET,ERECTILE DYSFUNCTION Past Surgical History: Cholecystectomy Smoking Status: Never Smoker Alcohol Use: None Drug Use: None General Adult EDM: Chief Complaint: FLU SYMPTOM HPI: HPI: Patient is a 55 year old male presents with a 1 week history headache congestion, cough with sputum production over the last few days, subjective fevers, chills, and myalgias presents for evaluation. Patient was vaccinated against covid 190 this past summer. Patient has recently been exposed to several family members who are positive for covid 19. Patient is a/o x 4. His oxygen saturation is 100% Review of Systems: Review of Systems: Review of systems: Constitutional symptoms- Positive fever, Positive chills. Eyes- No Discharge, No Visual Loss Respiratory symptoms- Positive shortness of breath, No wheezing, No Dyspnea on Exertion Positive cough Cardiovascular Systems; No chest pain, No Palpitations, No syncope Gastrointestinal symptoms: NO abdominal pain, Positive nausea, Positive vomiting no diarrhea. Genitourinary symptoms: No dysuria. Musculoskeletal symptoms: No back pain No extremity pain.Positive myalgias NEUROLOGICAL Symptoms: Positive headache, Positive generalized weakness; No focal Weakness Skin: No rash. Heart Score: C/O Chest Pain: N/A Risk Factors: Risk Factors: DM, Current or recent (<one month) smoker, HTN, HLP, family history of CAD, obesity. Risk Scores: Score 0 - 3: 2.5% MACE over next 6 weeks - Discharge Home Score 4 - 6: 20.3% MACE over next 6 weeks - Admit for Clinical Observation Score 7 - 10: 72.7% MACE over next 6 weeks - Early Invasive Strategies Current Medications: Current Medications Medications (Trade) Dose Ordered Sig/[facility] Start Time Stop Time Status Last Admin Dose Admin Acetaminophen (Tylenol) 650 mg 1X ONCE 01/19/21 05:30 01/19/21 05:31 DC Allergies: Allergies: Allergies Coded Allergies Type Severity Reaction Last Updated Verified No Known Drug Allergies 06/11/15 No Physical Exam: PE: Physical exam general: alert, no acute distress. Skin: warm, dry and intact, no erythema, no rash. HENT: bilateral external ears normal, oropharynx moist, nose normal. Head:: Normocephalic, atraumatic. Neck: Trachea midline. Eyes: EOMI, Normal conjunctiva, No drainage CARDIOVASCULAR: Regular rate and rhythm RESPIRATORY: No respiratory distress Back: Full range of motion. MUSCULOSKELETAL: Full range of motion of bilateral upper and lower extremities. GASTROINTESTINAL: Abdomen soft without rebound or guarding. NEUROLOGICAL: Alert and noted to person, place and time. No neurological deficits observed Psychiatric: Cooperative. Normal judgment Oxygen saturation 100% on room air no respiratory distress Current Patient Data: Vital Signs: Vital Signs Date Time Temp Pulse Resp B/P (MAP) Pulse Ox O2 Delivery O2 Flow Rate FiO2 01/19/21 05:20 98.2 112 20 174/97 (122) 99 Room Air 98.2 EKG: EKG: [] Radiology/Procedures: Radiology/Procedures: [] Course & Med Decision Making: Course & Med Decision Making Pertinent Labs and Imaging studies reviewed. (See chart for details) [] Covid swab and influenza swab obtained. Results pending. Patient was treated with Tylenol. Patient was given discharge instructions for viral infection upper respiratory infection and COVID-19. Dragon Disclaimer: [employer] Security Disclaimer: This electronic medical record was generated, in whole or in part, using a voice recognition dictation system. Departure Departure Impression: Primary Impression: Viral syndrome Additional Impression: Upper respiratory infection Disposition: HOME / SELF CARE / HOMELESS Condition: STABLE Referrals: NO PCP (PCP) Patient Instructions: Upper Respiratory Infection, Adult, Viral Syndrome Additional Instructions: You have been tested for or diagnosed with COVID-19. It is an infection caused by a new type of coronavirus. COVID-19 will cause cold-like or mild flu symptoms in most. It can cause more severe symptoms like problems breathing in some. There is no treatment for COVID-19. The body will clear the infection over time. Self-care will help to ease discomfort. Steps to Take: Self-Care Rest as needed. Healthy habits may help you feel better. Steps include: Choose healthy foods including fruits and vegetables. Drink water throughout the day. Get plenty of sleep each night. If you smoke, try to quit. It may ease breathing. Avoid alcohol. Keep Others Healthy The virus can spread to others. Droplets are released every time you sneeze or cough. The droplets can get into the mouth, nose, or eyes of people near you and lead to infection. To lower the chances of spreading COVID-19 to others: Stay at home until your doctor has said it is safe to leave. If you tested positive this will mean staying isolated until both of the following are true: At least 7 days have passed since the start of illness. You are free of fever for at least 72 hours without the use of medicine. During this time: - Avoid public areas, events, or transportation. Do not return to work or school until your doctor has said it is safe to do so. - Call ahead if you need to go to a medical center. Let them know you may have COVID-19. It will help them guide you where to go. They may also ask you to wear a facemask when you come to the office. - If you call for emergency medical services, let them know you may have COVID- 19. While at home: - Try to avoid close contact with others. Stay about 6 feet away. - If possible, spend most of your time in a separate room from others. - Use a face mask if you will be in close contact with others such as sharing a room or vehicle. - Have someone wipe down common surfaces in the home. Use household dishwashing machine repairer every day on areas like doorknobs, counters, or sinks. - Cough or sneeze into a tissue. Throw the tissue away right after use. If a tissue is not available, cough or sneeze into your elbow. - Wash your hands often. Wash them after sneezing or coughing. Use soap and water and wash for at least 20 seconds. Alcohol based hand hand glove cleaner can be used if soap and wate r is not available. - Do not prepare food for others. Avoid sharing personal items like forks, spoons, or toothbrushes. - Avoid close contact with pets while you are sick. There is no evidence of the virus passing to pets. This is a safety step until more is known about this virus. Isolation can be frustrating. Social interaction can help. Keep in touch with friends and family through phone and tech options. You can still interact with others in your home, just keep a safe distance of about 6 feet. Follow-up: Your doctors office will check in with you to see if there are any changes in your health. You may be asked to keep track of symptoms to share with them. They will also let you know when you are clear to be in public again. Problems to Look Out For: Contact your doctor if your recovery is not going as you expect. Get emergency care if you have problems such as: - Trouble breathing - Nonstop chest pain or pressure - Changes in awareness, confusion, or problems waking - Lips or face have bluish color - Worsening of symptoms If you think you have an emergency, call for emergency medical services right away. As taken from [facility] Tramadol Hcl (ULTRAM) 50 Mg Tablet 1 TAB PO PRN Q6HRS PRN for pain MDD 4 Tablet(s) for 7 Days, #20 TAB 0 Refills Prov: SHAJI GRIMM I DO 01/19/21 SHAJI GRIMM I DO Jan 19, 2021 05:36
[2021-01-19] MEDS ORDERED: TRAM-48 PO (05:40)
[2021-01-19 06:00] VITALS: BP 186/104
[2021-01-19 06:00] LABS: INFLUENZA B PATIENT NEGATIVE (NEGATIVE)
[2021-01-19 06:16] LABS: INFLUENZA A PATIENT POSITIVE (NEGATIVE)
== END 2021-01-19 06:30 | disposition home or self-care (01) ==
LOC: ER 05:09
DX: U07.1 COVID-19 (principal); B34.9 Viral infection, unspecified; J06.9 Acute upper respiratory infection, unspecified; E11.40 Type 2 diabetes mellitus with diabetic neuropathy, unspecified; I10 Essential (primary) hypertension
CPT/HCPCS: 87426; 87804; 99283